=== PATIENT | female | born 1980 | race American Indian/Alaskan Native ===

== ENCOUNTER 2017-09-26 20:52 | Emergency (ER) | payer BC, MEDICAID ==
[2017-09-26 21:46] VITALS: BP 123/82
[2017-09-26 22:17] LABS: Basophils % (Auto) 0.6 % (0.0-1.8); Eosinophils # (Auto) 0.2 K/mm3 (0.0-0.4); Eosinophils % (Auto) 2.9 % (0.0-4.3); Hematocrit 36.7 % (30.3-42.9); Hemoglobin 11.8 gm/dl (10.1-14.3); Lymphocytes # (Auto) 1.7 K/mm3 (1.2-5.4); Lymphocytes % (Auto) 27.7 % (13.4-35.0); Mean Corpuscular HGB Conc 32 % (30-34); Mean Corpuscular Hemoglobin 27 pg (28-32); Mean Corpuscular Volume 84 fl (79-97); Monocytes # (Auto) 0.4 K/mm3 (0.0-0.8); Monocytes % (Auto) 7.2 % (0.0-7.3); Platelet Count 210 K/mm3 (140-440); Red Blood Count 4.38 M/mm3 (3.65-5.03); Red Cell Distribution Width 13.6 % (13.2-15.2)
[2017-09-26 22:20] LABS: Bilirubin,Urine NEG (Negative); Blood,Urine MOD (Negative); Color,Urine Straw (Yellow); Protein,Urine <15 mg/dL mg/dL (Negative); RBC,Urine < 1.0 /HPF (0.0-6.0); Urobilinogen,Urine < 2.0 mg/dL (<2.0)
--- NOTE | 2017-09-27 00:55 | Emergency Department Report ---
ED Female HPI - General Chief complaint: Vaginal Bleeding Stated complaint: VAG BLEED/ Time Seen by Provider: 09/27/17 00:34 Source: patient Mode of arrival: Ambulatory Limitations: No Limitations - History of Present Illness Initial comments: Mrs. Mims is a is is approximately 2 months . Unknown LMP. Possibly July. Has mild dull lower back pain and vaginal spotting. No care. Symptoms began today. Gradual mild symptoms. No vomiting. MD Complaint: vaginal bleeding -: Gradual, days(s) (1) Severity: mild Quality: cramping Are you Now?: Yes - Related Data Home Medications Medication Instructions Recorded Confirmed Last Taken Vits96/Iron Fum/Folic 1 each PO QDAY 01/14/14 08/07/14 01/14/14 09:00 [ Tablet] Previous Rx's Medication Instructions Recorded Last Taken Type Lisinopril [Zestril TAB] 10 mg PO QDAY #30 tablet 07/03/13 01/14/14 09:00 Rx Ibuprofen [Motrin 800 MG tab] 800 mg PO TID PRN #30 tablet 08/03/14 08/06/14 Rx oxyCODONE /ACETAMINOPHEN [Percocet 1 - 2 tab PO Q4HR PRN #30 tablet 08/03/14 Rx 5/325 mg] Labetalol [Normodyne TAB] 200 mg PO BID #60 tablet 08/07/14 Unknown Rx Allergies Allergy/AdvReac Type Severity Reaction Status Date / Time No Known Allergies Allergy Verified 01/14/14 22:53 ED Review of Systems ROS: Stated complaint: VAG BLEED/ Other details as noted in HPI ED Past Medical Hx - Past Medical History Previous Medical History?: Yes Hx Hypertension: Yes Hx Congestive Heart Failure: No Hx Diabetes: No Hx Deep Vein Thrombosis: No Hx GERD: Yes Hx Renal Disease: No Hx Sickle Cell Disease: No Hx Headaches / Migraines: No Hx Seizures: No Hx Asthma: No Hx COPD: No Hx HIV: No Additional medical history: preeclampsia w 2nd preg - Surgical History Past Surgical History?: Yes Additional Surgical History: csection x2 - Social History Smoking Status: Never Smoker Substance Use Type: None - Medications Home Medications: Home Medications Medication Instructions Recorded Confirmed Last Taken Type Lisinopril [Zestril TAB] 10 mg PO QDAY #30 tablet 07/03/13 08/07/14 01/14/14 09: 00 Rx Vits96/Iron Fum/Folic 1 each PO QDAY 01/14/14 08/07/14 01/14/14 09:00 History [ Tablet] Ibuprofen [Motrin 800 MG tab] 800 mg PO TID PRN #30 tablet 08/03/14 08/07/14 Rx oxyCODONE /ACETAMINOPHEN [Percocet 1 - 2 tab PO Q4HR PRN #30 tablet 08/03/1408/06/14 Rx 5/325 mg] Labetalol [Normodyne TAB] 200 mg PO BID #60 tablet 08/07/14 Unknown Rx ED Physical Exam - General Limitations: No Limitations General appearance: alert, in no apparent distress - Head Head exam: Present: atraumatic, normocephalic - Eye Eye exam: Present: normal appearance - ENT ENT exam: Present: mucous membranes moist - Neck Neck exam: Present: normal inspection. Absent: tenderness, meningismus - Respiratory Respiratory exam: Present: normal lung sounds bilaterally. Absent: respiratory distress, wheezes, rales, rhonchi - Cardiovascular Cardiovascular Exam: Present: regular rate, normal rhythm. Absent: systolic murmur, diastolic murmur, rubs, gallop - GI/Abdominal GI/Abdominal exam: Present: soft, normal bowel sounds. Absent: distended, tenderness, guarding, rebound - Extremities Exam Extremities exam: Present: normal inspection - Back Exam Back exam: Present: normal inspection - Neurological Exam Neurological exam: Present: alert, oriented X3 - Psychiatric Psychiatric exam: Present: normal affect, normal mood - Skin Skin exam: Present: warm, dry, intact, normal color. Absent: rash ED Course Vital Signs 09/26/17 09/26/17 21:44 21:48 Temperature 98.4 F 98.7 F Pulse Rate 76 76 Respiratory 16 Rate Blood Pressure 123/82 Blood Pressure 123/82 [Right] O2 Sat by Pulse 100 Oximetry ED Medical Decision Making - Lab Data Result diagrams: 09/26/17 21:54 Laboratory Results - last 24 hr 09/26/17 09/26/17 09/26/17 21:54 21:54 21:54 WBC 6.1 RBC 4.38 Hgb 11.8 Hct 36.7 MCV 84 MCH 27 L MCHC 32 RDW 13.6 Plt Count 210 Lymph % (Auto) 27.7 Frio % (Auto) 7.2 Eos % (Auto) 2.9 Baso % (Auto) 0.6 Lymph # 1.7 Frio # 0.4 Eos # 0.2 Baso # 0.0 Seg Neutrophils % 61.6 Seg Neutrophils # 3.8 HCG, Quant 2415 H Urine Color Urine Turbidity Urine pH Ur Specific [place] Urine Protein Urine Glucose (UA) Urine Ketones Urine Blood Urine Nitrite Urine Bilirubin Urine Urobilinogen Ur Leukocyte Esterase Urine WBC (Auto) Urine RBC (Auto) U Epithel Cells (Auto) Blood Type B POSITIVE Antibody Screen Negative 09/26/17 Unknown WBC RBC Hgb Hct MCV MCH MCHC RDW Plt Count Lymph % (Auto) Frio % (Auto) Eos % (Auto) Baso % (Auto) Lymph # Frio # Eos # Baso # Seg Neutrophils % Seg Neutrophils # HCG, Quant Urine Color Straw Urine Turbidity Clear Urine pH 5.0 Ur Specific [place] 1.006 Urine Protein <15 mg/dl Urine Glucose (UA) Neg Urine Ketones Neg Urine Blood Mod Urine Nitrite Neg Urine Bilirubin Neg Urine Urobilinogen < 2.0 Ur Leukocyte Esterase Neg Urine WBC (Auto) 1.0 Urine RBC (Auto) < 1.0 U Epithel Cells (Auto) 2.0 Blood Type Antibody Screen - Medical Decision Making Ms. Mims presents with threatened miscarriage. DDx: missed , ectopic , or early Patient recommended to return in 2 days for repeat assessment. Critical care attestation.: If time is entered above; I have spent that time in minutes in the direct care of this critically ill patient, excluding procedure time. ED Disposition Clinical Impression: Threatened miscarriage Disposition: DC-01 TO HOME OR SELFCARE Is pt being admited?: No Does the pt Need Aspirin: No Condition: Stable Instructions: Threatened Miscarriage (ED) Additional Instructions: Please return to ER in 2-3 days on Saturday or Saturday for repeat US and hormone level. Forms: Work/School Release Form(ED)
--- NOTE | 2017-09-27 01:41 | Ultrasound Report ---
FINAL REPORT EXAM: US OB < = 14 WEEKS FETUS HISTORY: +hcg, vag bleeding TECHNIQUE: Transabdominal imaging was obtained of the pelvis. The patient refused transvaginal imaging. Doppler interrogation of the uterus and adnexa was obtained. FINDINGS: The uterus is anteverted measuring 11.8 cm x 5.6 cm x 8.6 cm. Within the uterus is a sac-like structure with a mean sac diameter 9.3 mm. This corresponds to a 5 week 5 day . The gestational sac is empty. There is no evidence of subchorionic hemorrhage. The ovaries are not adequately seen for evaluation. Free fluid is not seen IMPRESSION: Intrauterine gestational sac corresponding to 5 week 5 day . An embryo is not seen at this time. Repeat imaging is recommended in 1 week to confirm viability or demise.
== END 2017-09-27 02:16 | disposition home or self-care (01) ==
LOC: ED 20:52
DX: O20.0 Threatened abortion (principal); Z3A.14 14 weeks gestation of pregnancy; K21.9 Gastro-esophageal reflux disease without esophagitis; I10 Essential (primary) hypertension
CPT/HCPCS: 36415; 76801; 81001; 84702; 85025; 86850; 86900; 86901

== ENCOUNTER 2018-09-14 03:06 | Emergency (ER) | payer BC ==
[2018-09-14 03:17] VITALS: BP 149/94
[2018-09-14] MEDS ORDERED: TYLENOL ONE ×2 (03:49→05:50)
[2018-09-14] MEDS ORDERED: TYLENOL PO ONE (05:47)
--- NOTE | 2018-09-14 07:39 | Emergency Department Report ---
ED ENT HPI - General Chief complaint: Dental/Oral Stated complaint: BAD TOOTHACHE Time Seen by Provider: 09/14/18 07:06 Source: patient Mode of arrival: Ambulatory Limitations: No Limitations - History of Present Illness Initial comments: Patient is a 38-year-old female who presents to the ER with left sided upper and lower dental pain. Patient is 22 weeks . She is having no related symptoms. No abdominal pain no vaginal bleeding or discharge. Patient states that the pain came on gradually and she's been taking Tylenol but the Tylenol is not helping. She notes that she is limited with regard to pain medicine given her . Patient does have a dentist. MD complaint: tooth pain -: Gradual Severity: mild Quality: aching Consistency: constant Associated Symptoms: toothache - Related Data Previous Rx's Medication Instructions Recorded Last Taken Type Amoxicillin 500 mg PO BID #20 capsule 09/14/18 Unknown Rx Allergies Allergy/AdvReac Type Severity Reaction Status Date / Time No Known Allergies Allergy Verified 01/14/14 22:53 ED Dental HPI - General Chief complaint: Dental/Oral Stated complaint: BAD TOOTHACHE Time Seen by Provider: 09/14/18 07:06 Source: patient Mode of arrival: Ambulatory Limitations: No Limitations - Related Data Previous Rx's Medication Instructions Recorded Last Taken Type Amoxicillin 500 mg PO BID #20 capsule 09/14/18 Unknown Rx Allergies Allergy/AdvReac Type Severity Reaction Status Date / Time No Known Allergies Allergy Verified 01/14/14 22:53 ED Review of Systems ROS: Stated complaint: BAD TOOTHACHE Other details as noted in HPI Comment: All other systems reviewed and negative Constitutional: denies: chills Eyes: denies: eye pain, vision change ENT: dental pain Respiratory: denies: cough Cardiovascular: denies: chest pain Endocrine: denies: flushing Gastrointestinal: denies: as per HPI, abdominal pain Genitourinary: as per HPI Musculoskeletal: denies: back pain Skin: denies: lesions Neurological: denies: headache Psychiatric: denies: anxiety Hematological/Lymphatic: denies: easy bleeding ED Past Medical Hx - Past Medical History Previous Medical History?: Yes Hx Hypertension: No Hx Congestive Heart Failure: No Hx Diabetes: No Hx Deep Vein Thrombosis: No Hx GERD: Yes Hx Renal Disease: No Hx Sickle Cell Disease: No Hx Headaches / Migraines: No Hx Seizures: No Hx Asthma: No Hx COPD: No Hx HIV: No Additional medical history: preeclampsia w 2nd preg - Surgical History Past Surgical History?: Yes Additional Surgical History: csection x2 - Social History Smoking Status: Never Smoker Substance Use Type: None - Medications Home Medications: Home Medications Medication Instructions Recorded Confirmed Last Taken Type Amoxicillin 500 mg PO BID #20 capsule 09/14/18 Unknown Rx ED Physical Exam - General Limitations: No Limitations General appearance: alert - Head Head exam: Present: atraumatic - Eye Eye exam: Present: normal appearance Pupils: Present: normal accommodation - ENT ENT exam: Present: normal exam, mucous membranes moist - Expanded ENT Exam Expanded Ear exam: Present: normal external inspection Mouth exam: Present: normal external inspection. Absent: drooling, trismus, muffled voice, tongue normal, tongue elevation, laceration Teeth exam: Present: other (no abscess of gums, no ludwigs, no pharyngeal abscess) 1 - Other (dental pain) Throat exam: Positive: normal inspection. Negative: tonsillar erythema, tonsillomegaly, tonsillar exudate, R peritonsillar mass, L peritonsillar mass - Neck Neck exam: Present: full ROM. Absent: tenderness, meningismus - Respiratory Respiratory exam: Present: normal lung sounds bilaterally - Cardiovascular Cardiovascular Exam: Present: regular rate - GI/Abdominal GI/Abdominal exam: Present: other (gravid) - Extremities Exam Extremities exam: Present: normal inspection, full ROM - Back Exam Back exam: Present: normal inspection, full ROM - Neurological Exam Neurological exam: Present: alert, oriented X3, CN II-XII intact - Skin Skin exam: Present: warm, dry, intact ED Course Vital Signs 09/14/18 03:13 Temperature 97.9 F Pulse Rate 84 Respiratory 18 Rate Blood Pressure 149/94 O2 Sat by Pulse 100 Oximetry ED Medical Decision Making - Medical Decision Making simple dental pain in 22 w female no complaints dental pain only no abscess/ludwigs treat with amox and tylenol she will follow up with dentist educated on diet during Critical care attestation.: If time is entered above; I have spent that time in minutes in the direct care of this critically ill patient, excluding procedure time. ED Disposition Clinical Impression: Pain, dental, Disposition: DC- TO HOME OR SELFCARE Is pt being admited?: No Does the pt Need Aspirin: No Condition: Stable Additional Instructions: follow up with dentist as we discussed tylenol for pain drink milk or food with calcium/VitD daily Referrals: KHUSHI NOWAK MD [Primary Care Provider] - 3-5 Days Time of Disposition: 07:37
== END 2018-09-14 07:42 | disposition home or self-care (01) ==
LOC: ED 03:06
DX: O26.892 Other specified pregnancy related conditions, second trimester (principal); K08.89 Other specified disorders of teeth and supporting structures; K21.9 Gastro-esophageal reflux disease without esophagitis; Z3A.22 22 weeks gestation of pregnancy
CPT/HCPCS: 99282

== ENCOUNTER 2018-09-16 09:57 | Outpatient (CLI) | payer BC ==
[2018-09-16 10:27] VITALS: BP 121/71
[2018-09-16 11:01] LABS: Bacteria,Urine 1+ /HPF (Negative); Bilirubin,Urine NEG (Negative); Blood,Urine NEG (Negative); Color,Urine Yellow (Yellow); Mucus,Urine FEW /HPF; Protein,Urine <15 mg/dL mg/dL (Negative); Urobilinogen,Urine < 2.0 mg/dL (<2.0)
--- NOTE | 2018-09-16 13:32 | Ultrasound Report ---
ULTRASOUND OB LIMITED ULTRASOUND OB TRANSVAGINAL History: labor Technique: Transabdominal and transvaginal ultrasound with Doppler interrogation. Gestation: Single Position: Variable Amniotic Fluid: Within normal limits Placenta: Anterior Placental Grade: 0 Heart Rate: 149 BPM Cervical length: 4.4 cm (Normal > 3 cm)
== END 2018-09-16 14:19 | disposition home or self-care (01) ==
LOC: TRG 09:57
PROVIDERS: ATTEND Obstetrics & Gynecology
DX: O47.02 False labor before 37 completed weeks of gestation, second trimester (principal); O13.3 Gestational [pregnancy-induced] hypertension without significant proteinuria, third trimester; Z3A.23 23 weeks gestation of pregnancy
CPT/HCPCS: 76815; 76817; 81001; 87086

== ENCOUNTER 2019-01-07 05:23 | Inpatient (IN) | payer BC ==
--- NOTE | 2019-01-05 18:46 | History and Physical Report ---
History of Present Illness Date of examination: 01/01/19 History of present illness: Past History : 6 Term Births: 1 Premature Births: 2 Living Children: 2 Para: 2 Spont. Ab: 2 # 1 Delivery date: 09/06/1998 Weeks Gestation: 28 labor: yes Delivery type: Delivery location: [place] Inf[place] Sex: Male weight: 2lbs Comments: PTL, brain abnormaility?, demise # 2 Delivery date: 09/27/2012 Weeks Gestation: 36+5 Delivery type: Anesthesia type: epidural Delivery location: [facility] Infant Sex: female weight: 5.94 Comments: pre-eclampsia/eclampsia; HSV infection, prodromal # 3 Delivery date: 08/03/2014 Weeks Gestation: 39 Delivery type: Anesthesia type: epidural Delivery location: [facility] Infant Sex: female weight: 9.13 # 4 Delivery date: 06/2017 Delivery type: MISSED AB # 5 Delivery date: 09/2017 Delivery type: SAB Past Medical History: Reviewed history from 10/01/2008 and no changes required: Negative Past Medical History Past Surgical History: Reviewed history from 08/03/2014 and no changes required: Hysteroscopic polypectomy C-sectionx2 Past Medical History Surgery (Non-cuff maker): Hysteroscopic polypectomy C-sectionx2 BUN ICER History Uterine Surgery (not C/S): Polypectomy Operations: Hysteroscopic polypectomy C-sectionx2 Hospitalizations: negative Anesthesia Complications: negative Abnormal PAP: negative Uterine Anomaly: negative STEPHAN Exposure: negative Infertility: negative Infection History HIV Risk Eval: no Hep B Immunized: no TB exposure: no Personal hx. of genital herpes: yes Partner hx. of genital herpes: no Rash/viral illness since LMP: no Hx of STD: HSV Other: PID Family History Summary: Father (biol.) - Has Family History of Prostate Cancer - Entered On: 02/27/2018 General Comments - FH: No Family History of Breast Cancer No Family History of Colon Cancer No Family History of Ovarian Cancer Family History of Diabetes Family History of Hypertension- HTN Social Hx: Patient is single Smoking History: Patient has never smoked. Genetic History Congenital Heart Defect: Mom: no Dad: no Denice Disease: Mom: no Dad: no Thalassemia Mom: no Dad: no Neural Tube Defect Mom: no Dad: no Down's Syndrome Mom: no Dad: no Curt-Sachs Mom: no Dad: no Sickle Cell Disease/Trait Mom: no Dad: no Hemophilia Mom: no Dad: no Muscular Dystrophy Mom: no Dad: no Cystic Fibrosis Mom: no Dad: no [place] Chorea Mom: no Dad: no Mental Retardation Mom: no Dad: no Fragile X Mom: no Dad: no Other Genetic/Chromosomal Disorder Mom: no Dad: no Child w/other defect Mom: no Dad: no Enviromental Exposures Enviromental Exposures Reviewed Xray Exposure: no Medication, drug, or alcohol use since LMP: no Chemical/Other Exposure: no Exposure to Cat Liter: no Hx of Parvovirus (Fifth Disease): no Occupational Exposure to Children: none Active Medications (reviewed today): LILA LOW DOSE 81 MG ORAL TABLET DELAYED RELEASE (ASPIRIN) PLUS 27-1 MG ORAL TABLET ( VIT-FE FUMARATE-FA) 1 po Current Allergies (reviewed today): No known allergies Physical Exam General appearance: well nourished, healthy appearing, no distress Chest/Lungs: respiratory effort normal, lungs clear to auscultation Cardiovascular: normal rate and rhythm Abdomen/GI: soft, nontender Extremities: no discoloration or edema Problem # 1: Maternal care for low transverse scar from previous delivery ([id number]) Consent reviewed and signed . Laparotomy explained to patient. The risks and alternatives for this surgery were reviewed with the patient. She was informed of possible bleeding, infection, injury to bowel, bladder, ureters or other adjacent organs. The patient was instructed/informed the following: The normal length of hospital stay for this procedure. Nothing to eat or drink after midnight the evening prior to surgery. Pre-op instruction sheets given. Wound care instructions given. Infection precautions reviewed, patient to call for any signs or symptoms of infection. The usual discomforts associated with this procedure were detailed. . Patient was given ample opportunity to have all her questions answered before signing informed consent. Problem # 2: Sterilization (ICD-V25.2) ([id number]) Risks of regret emphasized. Permanent and irreversible condition explained to patient. Pt verbalized understanding. Consent reviewed and signed. The risks and alternatives to this surgery were reviewed with the patient. Infection precautions reviewed, pt to call for any signs or symptoms of infection. Patient given ample opportunity to have all her questions answered before signing informed consent. Patient informed of possible bleeding. 1%failure rate emphasized Problem # 3: Advanced Maternal Age (OZP42-M43.529) Problem # 4: Genital herpes (ICD-054.10) ([id number]-P76.00) ) Past History - Obstetrical History : 3 Medications and Allergies Allergies Allergy/AdvReac Type Severity Reaction Status Date / Time No Known Allergies Allergy Verified 01/14/14 22:53 Home Medications Medication Instructions Recorded Confirmed Last Taken Type Amoxicillin 500 mg PO BID #20 capsule 09/14/18 Unknown Rx Active Meds: Active Medications Carboprost Tromethamine (Hemabate) 250 mcg IM ONCE ONE Stop: 01/07/19 05:31 Citric Acid/Sodium Citrate (Bicitra) 30 ml PO ONCE ONE Stop: 01/07/19 07:01 Famotidine (Pepcid) 20 mg IV ONCE ONE Stop: 01/07/19 07:01 Cefazolin Sodium (Ancef/Sterile Water 2 Gm/20 Ml) 2 gm in 20 mls @ 80 mls/hr IV PREOP NR; Protocol Oxytocin/Sodium Chloride (Pitocin/Ns 20 Unit/1000ml Drip) 20 units in 1,000 mls @ 0 mls/hr IV TITR ELSY Lactated Ringer's (Lactated Ringers) 1,000 mls @ 2,250 mls/hr IV PREOP ELSY Stop: 01/08/19 05:57 Methylergonovine Maleate (Methergine) 0.2 mg IM ONCE PRN PRN Reason: bleeding Metoclopramide HCl (Reglan) 10 mg IV ONCE ONE Stop: 01/07/19 07:01 Misoprostol (Cytotec) 1,000 mcg OR ONCE PRN PRN Reason: bleeding Oxytocin (Pitocin) 10 unit IM ONCE PRN PRN Reason: bleeding Results All other labs normal. Assessment and Plan - Patient Problems (1) Maternal care due to low transverse uterine scar from previous delivery Status: Acute (2) Sterilization Status: Acute (3) Genital herpes Status: Chronic (4) Advanced maternal age (AMA) in Status: Chronic
[2019-01-07] MEDS ORDERED: METHERGINE IM PRN (05:30)
[2019-01-07] MEDS ORDERED: ANCEF/STERILE WATER 2 GM/20 ML 2 GM/20 ML SYRINGE IV NR (05:30)
[2019-01-07] MEDS ORDERED: HEMABATE IM ONE (05:30)
[2019-01-07] MEDS ORDERED: CYTOTEC PR PRN (05:30)
[2019-01-07] MEDS ORDERED: PITOCin/NS 20 UNIT/1000ML DRIP 20 UNITS/1,000 ML BAG IV SCH ×2 (05:30→11:56)
[2019-01-07] MEDS ORDERED: LACTATED RINGERS 2,000 ML ONE (05:45)
[2019-01-07] MEDS: LACTATED RINGERS 1,000 ML IV SCH ×2 (06:00→07:09)
[2019-01-07 06:08] LABS: Hematocrit 36.2 % (30.3-42.9); Mean Corpuscular HGB Conc 33 % (30-34); Mean Corpuscular Volume 89 fl (79-97); Platelet Count 120 K/mm3 (140-440); Red Blood Count 4.09 M/mm3 (3.65-5.03); Red Cell Distribution Width 13.3 % (13.2-15.2)
[2019-01-07] MEDS ORDERED: BICITRA PO SCH (07:00)
[2019-01-07] MEDS ORDERED: REGLAN IV SCH (07:00)
[2019-01-07] MEDS ORDERED: PEPCID IV SCH (07:00)
[2019-01-07] MEDS ORDERED: ANCEF/STERILE WATER 2 GM/20 ML 2 GM/20 ML SYRINGE IV ONE (07:03)
[2019-01-07] MEDS ORDERED: PITOCin/NS 20 UNIT/1000ML DRIP 40,000 MILLIUNITS/2,000 ML BAG IV ONE (07:04)
[2019-01-07] MEDS ORDERED: SUBLIMAZE ONE (07:10)
--- NOTE | 2019-01-07 07:28 | Anesthesia Consultation ---
Anesthesia Consult and Med Hx Date of service: 01/07/19 - Airway Anesthetic Teeth Evaluation: Good ROM Head & Neck: Adequate Mental/Hyoid Distance: Adequate Mallampati Class: Class II Intubation Access Assessment: Probably Good - Pulmonary Exam CTA: Yes - Cardiac Exam Cardiac Exam: RRR - Pre-Operative Health Status ASA Pre-Surgery Classification: ASA3 Proposed Anesthetic Plan: Epidural - Pulmonary Hx Smoking: No Hx Asthma: No Hx Respiratory Symptoms: No SOB: No COPD: No Home Oxygen Therapy: No Hx Pneumonia: No Hx Sleep Apnea: No - Cardiovascular System Hx Hypertension: Yes (PIH) Hx Coronary Artery Disease: No Hx Heart Attack/AMI: No Hx Angina: No Hx Percutaneous Transluminal Coronary Angioplasty (PTCA): No Hx Cardia Arrhythmia: No Hx Pacemaker: No Hx Internal Defibrillator: No Hx Valvular Heart Disease: No Hx Heart Murmur: No Hx Peripheral Vascular Disease: No - Central Nervous System Hx Neuromuscular Disorder: No Hx Seizures: No CVA: No Hx Back Pain: No Hx Psychiatric Problems: No - Gastrointestinal Hx Ulcer: No Hx Gastroesophageal Reflux Disease: Yes - Endocrine Hx Renal Disease: No Hx End Stage Renal Disease: No Hx Cirrhosis: No Hx Liver Disease: No Hx Insulin Dependent Diabetes: No Hx Non-Insulin Dependent Diabetes: No Hx Thyroid Disease: No Hx Hypothyroidism: No Hx Hyperthyroidism: No - Hematic Hx Anemia: No Hx Sickle Cell Disease: No - Other Systems Hx Alcohol Use: No Hx Cancer: No Hx Obesity: Yes (BMI 35)
--- NOTE | 2019-01-07 07:28 | Anesthesia Day of Surgery ---
Anesthesia Day of Surgery - Day of Surgery Patient Examined: Yes Patient H&P Reviewed: Yes Patient is NPO: Yes Beta Blockers: No Cardiac Clearance: No Pulmonary Clearance: No Michael's Test: N/A
[2019-01-07 07:45] LABS: Alanine Aminotransferase 14 units/L (7-56); Uric Acid 4.4 mg/dL (3.5-7.6)
[2019-01-07] MEDS ORDERED: WATER FOR IRRIG STERILE IR ONE (08:00)
[2019-01-07] MEDS ORDERED: NACL 0.9% IR ONE (08:00)
[2019-01-07] MEDS ORDERED: NEO SYNEPHRINE ONE (08:28)
[2019-01-07] MEDS ORDERED: TORADOL ONE (09:25)
--- NOTE | 2019-01-07 09:48 | Post Operative Note ---
Pre-op diagnosis: delivery sterilization Post-op diagnosis: same Procedure: LTCS, salpingectomy (B) Anesthesia: epidural Surgeon: KRISTEN CID Estimated blood loss: other (600mL) Pathology: list (tubes) Specimen disposition: to lab Condition: stable Disposition: PACU
[2019-01-07] MEDS ORDERED: PHENERGAN PR PRN (10:00)
[2019-01-07] MEDS ORDERED: PHENERGAN PO PRN (10:00)
[2019-01-07] MEDS ORDERED: DILAUDID IV PRN ×2 (10:00)
[2019-01-07] MEDS ORDERED: SODIUM CHLORIDE FLUSH SYRINGE 10 ML IV NR ×2 (10:00→11:56)
[2019-01-07] MEDS ORDERED: ZOFRAN IV PRN ×2 (10:00→11:56)
[2019-01-07] MEDS ORDERED: NARCAN 0.4 MG/1 ML IV PRN ×2 (10:00→11:56)
--- NOTE | 2019-01-07 10:00 | Post Anesthesia Evaluation ---
- Post Anesthesia Evaluation Patient Participated: Yes Airway Patent: Yes Stable Respiratory Function: Yes Nausea/Vomiting: No Temp > 96.8F: Yes Pain Manageable: Yes Adequeate Hydration: Yes Anesthesia Complications: No Block Receding Appropriately: Yes Patient on Ventilator: No
[2019-01-07] MEDS ORDERED: LACTATED RINGERS 1,000 ML ONE (10:01)
[2019-01-07] MEDS ORDERED: TYLENOL PR PRN (11:56)
[2019-01-07] MEDS ORDERED: TYLENOL PO PRN (11:56)
[2019-01-07] MEDS ORDERED: TORADOL IV PRN ×2 (11:56)
[2019-01-07] MEDS ORDERED: D5LR 1,000 ML IV SCH (11:56)
[2019-01-07] MEDS ORDERED: MORPHINE IV PRN ×2 (11:56)
[2019-01-07] MEDS ORDERED: TUCKS PAD TP PRN (11:56)
[2019-01-07] MEDS ORDERED: LANSINOH TP PRN (11:56)
--- NOTE | 2019-01-07 19:29 | Operative Report ---
Operative Report Operative Report: Date: 01/07/2019 Preoperative diagnosis: 1. Intrauterine at 39 weeks 2. Previous delivery 2 desires repeat delivery 3. Advanced maternal age 4. Desires sterilization by salpingectomy Postoperative diagnosis: 1. Intrauterine at 39 weeks 2. Previous delivery 2 desires repeat delivery 3. Advanced maternal age 4. Desires sterilization by salpingectomy Procedure: Low transverse delivery with bilateral salpingectomy for sterilization Surgeon: Aleisha Mendenhall MD Seafood Manager: Gem Dempsey STNA Anesthesia: Epidural Anesthesiologist: Dr. Medrano Estimated blood loss: 600 mL Urine out: 200 mL Findings: Live born male . Weight 8 pounds 13 oz. Apgars 8 at 1 minute and 9 at 5 minutes. Grossly normal uterus, tubes and ovaries Procedure: After risk, benefits, complications, consequences and alternatives for th procedure were discussed with patient and consents were reviewed and signed, she was taken to the OR where epidural anesthesia was placed. She was then placed in the left lateral tilt position, and prepped and draped in the usual sterile fashion. Timeout was performed, and an appropriate level of anesthesia was noted, a Pfannenstiel incision was made and extended to the fascia which was incised and extended in the lateral directions. The overlying fascia was sharply dissected away from the underlying rectus muscles in the superior and inferior directions. The midline was entered with blunt and sharp dissection. The vesicouterine fold was incised and with blunt dissection the bladder flap was created. A transverse incision was made in the lower uterine segment and extended in superiolateral direction with finger fractionation. Clear fluid was noted. The infant was delivered from cephalic position with the second attempt at vacuum extraction. Mouth and nose were bulb suctioned. Spontaneous cry and excellent tone were noted. Cord was doubly clamped and cut. The was given to /resuscitation team present. The placenta was manually extracted. The uterus was then exteriorized and cleared of any further products of conception or placental tissue. The incision was reapproximated using 0 Vicryl in a running interlocking stitch. Once confirmation was obtained from the patient proceed with sterilization, bilateral salpingectomy was performed using the 5 mm LigaSure [place] device. Once hemostasis is noted the same procedure was performed on the left tube. Tisseel was applied to the adnexa to ensure hemostasis. Each fallopian tube was sent to pathology in separate containers. Once hemostasis was noted, the uterus was allowed back into the pelvic cavity. The pelvis was irrigated with warm normal saline. Attention was turned to the adnexa where hemostasis was noted. Tisseel was applied to the uterine incision for further hemostasis. Interceed was then placed to prevent adhesions. Then attention was turned to the rectus muscles. Once hemostasis was noted, the fascia was approximated using 0 Vicryl and some running stitch. Once hemostasis was noted skin incision was reapproximated using 4-0 Vicryl on a Emery needle in a subcuticular manner. Counts were correct 3. Patient tolerated procedure well state recovery room in stable condition.
[2019-01-07] MEDS: ANCEF/NS 1 GM/50 ML 1 GM/50 ML BAG IV SCH (21:02)
[2019-01-07] MEDS: IBUPROFEN PO PRN (21:04)
[2019-01-07] MEDS: PERCOCET 5/325 PO PRN (21:05)
[2019-01-07 21:41] LABS: Hematocrit 31.4 % (30.3-42.9); Hemoglobin 10.7 gm/dl (10.1-14.3); Mean Corpuscular HGB Conc 34 % (30-34); Mean Corpuscular Volume 87 fl (79-97); Platelet Count 108 K/mm3 (140-440); Red Blood Count 3.59 M/mm3 (3.65-5.03)
[2019-01-08] MEDS: IBUPROFEN PO PRN ×3 (02:58→18:38)
[2019-01-08] MEDS: MYLICON PO PRN (02:58)
[2019-01-08] MEDS: PERCOCET 5/325 PO PRN ×4 (02:59→23:46)
[2019-01-08] MEDS: ANCEF/NS 1 GM/50 ML 1 GM/50 ML BAG IV SCH (05:00)
--- NOTE | 2019-01-08 06:47 | Progress Note ---
Assessment and Plan - Patient Problems (1) delivery delivered Onset Date: ~01/07/19 Current Visit: No Status: Acute Plan to address problem: VSS FF below umb Lochia small Dressing D&I to be removed today H&H 05/14 drop r/t blood loss from surgery Pt is asymptomatic. Doing well s/p c/s P: continue pathway Advance diet and activity Subjective - Subjective Date of service: 01/08/19 (pt in good spirits No c/o voiced) Principal diagnosis: Day # 1 s/p repeat c/s with tubal Patient reports: appetite normal, voiding normally, pain well controlled, ambulating normally : doing well Objective - Vital Signs Latest vital signs: Vital Signs Temp Pulse Resp BP BP Pulse Ox 01/08/19 02:59 18 01/08/19 02:58 18 01/07/19 23:05 99 F 81 18 129/78 01/07/19 21:05 18 01/07/19 20:50 98.5 F 89 18 142/89 98 01/07/19 16:00 98.2 F 81 18 116/73 01/07/19 10:55 69 18 110/68 98 01/07/19 10:45 76 16 104/64 98 01/07/19 10:30 83 18 103/64 98 01/07/19 10:15 70 16 111/71 98 01/07/19 10:00 71 17 100/60 98 01/07/19 09:45 68 16 88/52 98 01/07/19 09:42 97.6 F 66 18 96/44 98 Intake and Output 01/07/19 01/07/19 01/08/19 14:59 22:59 06:59 Intake Total 900 650 Output Total 600 1900 1300 Balance 300 -1250 -1300 Intake: IV 900 50 ANCEF/NS 1 GM/50 ML 1 gm 50 In 50 ml @ 100 mls/hr IV Q8H [facility] Rx#:[id number] Oral 240 Intake, Free Water 360 Output: Urine 600 1900 1300 Indwelling Catheter 1900 Uretheral ([place]) 200 Void 1300 Other: Total, Intake Amount 240 Total, Output Amount 1000 700 # Voids Void 1 Estimated Blood Loss 600 - Exam Breasts: Present: normal Cardiovascular: Present: Regular rate Lungs: Present: Normal air movement Abdomen: Present: normal appearance, soft, normal bowel sounds Uterus: Present: normal, fundal height below umbilicus Extremities: Present: normal Deep Tendon Reflex Grade: Normal +2 Incision: Present: normal, dry, intact, dressed (to be removed) - Labs Labs: Abnormal lab results 01/07/19 01/07/19 Range/Units 07:10 21:32 RBC 3.59 L (3.65-5.03) M/mm3 RDW 13.0 L (13.2-15.2) % Plt Count 108 L (140-440) K/mm3 Creatinine 0.4 L (0.7-1.2) mg/dL
[2019-01-08] MEDS ORDERED: BOOSTRIX IM ONE (09:42)
[2019-01-09] MEDS: PERCOCET 5/325 PO PRN (05:42)
[2019-01-09 07:30] VITALS: BP 139/86
--- NOTE | 2019-01-09 08:33 | Discharge Summary ---
Providers - Providers Date of Admission: 01/07/19 05:23 Date of discharge: 01/09/19 (desires d/c home today) Attending physician: KRISTEN CID 01/07/19 11:56 Consult to Corporate Treasurer [CONS] Routine Reason For Exam: Primary care physician: KHUSHI NOWAK Hospitalization Reason for admission: repeat c/s Condition: Good Pertinent studies: postop H&H 10.7/31.4 Procedures: repeat c/s with tubal Hospital course: uncomplciated c/s and postop course Disposition: DC-01 TO HOME OR SELFCARE - Discharge Diagnoses (1) delivery delivered Status: Acute Core Measure Documentation - Palliative Care Palliative Care/ Comfort Measures: Not Applicable - Core Measures Any of the following diagnoses?: none Exam - Constitutional Vitals: Temp Pulse Resp BP Pulse Ox 98.7 F 83 18 139/86 98 01/09/19 07:17 01/09/19 07:17 01/09/19 07:17 01/09/19 07:17 01/09/19 00:16 General appearance: Present: no acute distress, well-nourished - EENT Eyes: Present: PERRL ENT: hearing intact, clear oral mucosa - Neck Neck: Present: supple, normal ROM - Respiratory Respiratory effort: normal Respiratory: bilateral: CTA - Cardiovascular Heart Sounds: Present: S1 & S2. Absent: rub, click - Extremities Extremities: pulses symmetrical, No edema Peripheral Pulses: within normal limits - Abdominal General gastrointestinal: Present: soft, non-tender, non-distended, normal bowel sounds Female genitourinary: Present: normal - Integumentary Integumentary: Present: clear, warm, dry - Musculoskeletal Musculoskeletal: gait normal, strength equal bilaterally - Psychiatric Psychiatric: appropriate mood/affect, intact judgment & insight - Neurologic Neurologic: CNII-XII intact, moves all extremities - Additional findings Additional findings: incision D&I, lochia scant, fundus firm, , b/p's 130/80's - no CHAPPELL, epigastric pain or visual changes Plan Activity: advance as tolerated Diet: regular Wound: open to air, keep clean and dry Follow up with: KRISTEN CID MD [Staff Physician] - 7 Days (Congratulations!!! please call [phone] to schedule your son's circumcision and your incision check in 1 week. Bring EMLA cream to your son's visit and await instructions. Call for any questions or concerns. ) Prescriptions: Docusate Sodium [Colace] 100 mg PO BID PRN #30 capsule PRN Reason: Constipation Lidocain2.5%/Prilocai2.5% [Emla] 5 gm TP ONCE #1 tube Ferrous Sulfate [Feosol 325 MG tab] 325 mg PO BID #90 tablet Ibuprofen [Motrin 800 MG tab] 800 mg PO TID PRN #30 tablet PRN Reason: Pain oxyCODONE /ACETAMINOPHEN [Percocet 5/325 mg] 1 - 2 tab PO Q4HR PRN #20 tablet PRN Reason: Pain
[2019-01-09] MEDS: IBUPROFEN PO PRN (09:52)
[2019-01-09] MEDS: MYLICON PO PRN (13:20)
== END 2019-01-09 14:53 | disposition home or self-care (01) | DRG 784 ==
LOC: UNDOADMIN 05:23 → 3A 05:23 → APU 05:41 → OB 11:07
PROVIDERS: ADMIT Obstetrics & Gynecology; ATTEND Obstetrics & Gynecology
PROC: 10D00Z1 Extraction of Products of Conception, Low, Open Approach (ICD-10-PCS; principal; 2019-01-07)
PROC: 0UT70ZZ Resection of Bilateral Fallopian Tubes, Open Approach (ICD-10-PCS; 2019-01-07)
PROC: 3E0234Z Introduction of Serum, Toxoid and Vaccine into Muscle, Percutaneous Approach (ICD-10-PCS; 2019-01-08)
DX: O34.211 Maternal care for low transverse scar from previous cesarean delivery (principal); O98.32 Other infections with a predominantly sexual mode of transmission complicating childbirth; A60.00 Herpesviral infection of urogenital system, unspecified; O16.4 Unspecified maternal hypertension, complicating childbirth; O99.62 Diseases of the digestive system complicating childbirth; O99.214 Obesity complicating childbirth; E66.9 Obesity, unspecified; K21.9 Gastro-esophageal reflux disease without esophagitis; Z3A.39 39 weeks gestation of pregnancy; Z23 Encounter for immunization; Z37.0 Single live birth
CPT/HCPCS: 36415; 82565; 83615; 84450; 84460; 84550; 85027; 86592; 86762; 86850; 86900; 86901; 88302; 90471; 90715; G0378; C1765; J0690; J1170; J1885; J2370; J2590; J2765; J3010; J7120; J7121

== ENCOUNTER 2019-01-14 15:28 | Inpatient (IN) | payer BC ==
--- NOTE | 2019-01-14 15:51 | Event Note ---
ED Screening Note Date of service: 01/14/19 Time: 15:49 ED Screening Note: 39 y/o female 1 week referred to ER from her doctor for eclampsia. This initial assessment/diagnostic orders/clinical plan/treatment(s) is/are subject to change based on patients health status, clinical progression and re- assessment by fellow clinical providers in the ED. Further treatment and workup at subsequent clinical providers discretion. Patient/guardian urged not to elope from the ED as their condition may be serious if not clinically assessed and managed. Initial orders include:
[2019-01-14 16:27] LABS: Basophils % (Auto) 0.7 % (0.0-1.8); Eosinophils # (Auto) 0.2 K/mm3 (0.0-0.4); Eosinophils % (Auto) 3.9 % (0.0-4.3); Hemoglobin 12.7 gm/dl (10.1-14.3); Lymphocytes # (Auto) 1.3 K/mm3 (1.2-5.4); Lymphocytes % (Auto) 30.9 % (13.4-35.0); Mean Corpuscular HGB Conc 33 % (30-34); Mean Corpuscular Volume 89 fl (79-97); Monocytes # (Auto) 0.4 K/mm3 (0.0-0.8); Monocytes % (Auto) 8.6 % (0.0-7.3); Platelet Count 278 K/mm3 (140-440); Red Blood Count 4.38 M/mm3 (3.65-5.03); Red Cell Distribution Width 13.2 % (13.2-15.2)
--- NOTE | 2019-01-14 16:35 | Emergency Department Report ---
ED General Adult HPI - General Chief complaint: High BP Stated complaint: PRE ECLAMPSIA Time Seen by Provider: 01/14/19 15:58 Source: patient Mode of arrival: Ambulatory Limitations: No Limitations - History of Present Illness Initial comments: 39-year-old female with a past medical history of previous preeclampsia presents to the hospital complains of elevated blood pressure noticed today. Patient had a delivery on 01/07/2019. She reports that she did not have any preeclampsia or elevated blood pressure during this . This is her third and she reports that with her first she had preeclampsia at the end of her and after her second she had preeclampsia. Patient went to her PMD office today and states her initial systolic blood pressure was 132. She when went to her [employer] follow-up appointment with Dr. Mendenhall who noticed a blood pressure was elevated and sent her to the ER to rule out preeclampsia. She had a mild frontal headache earlier that has since resolved. She denies abdominal pain, chest pain, blurrd vision, or leg edema. Severity scale (0 -10): 4 - Related Data Home Medications Medication Instructions Recorded Confirmed Last Taken Vit-Fe Fumar-FA [ 1 tab PO DAILY 01/07/19 01/07/19 01/06/19 Vitamin] Previous Rx's Medication Instructions Recorded Last Taken Type Docusate Sodium [Colace] 100 mg PO BID PRN #30 capsule 01/07/19 Unknown Rx Ferrous Sulfate [Feosol 325 MG tab] 325 mg PO BID #90 tablet 01/07/19 Unknown Rx Ibuprofen [Motrin 800 MG tab] 800 mg PO TID PRN #30 tablet 01/07/19 Unknown Rx Lidocain2.5%/Prilocai2.5% [Emla] 5 gm TP ONCE #1 tube 01/07/19 Unknown Rx oxyCODONE /ACETAMINOPHEN [Percocet 1 - 2 tab PO Q4HR PRN #20 tablet 01/07/19 Unknown Rx 5/325 mg] Allergies Allergy/AdvReac Type Severity Reaction Status Date / Time No Known Allergies Allergy Verified 01/14/19 15:43 ED Review of Systems ROS: Stated complaint: PRE ECLAMPSIA Other details as noted in HPI Comment: All other systems reviewed and negative ED Past Medical Hx - Past Medical History Previous Medical History?: Yes Hx Hypertension: Yes (PIH) Hx Heart Attack/AMI: No Hx Congestive Heart Failure: No Hx Diabetes: No Hx Deep Vein Thrombosis: No Hx GERD: Yes Hx Liver Disease: No Hx Renal Disease: No Hx Sickle Cell Disease: No Hx Headaches / Migraines: No Hx Seizures: No Hx Asthma: No Hx COPD: No Hx HIV: No Additional medical history: preeclampsia w 2nd preg - Surgical History Past Surgical History?: Yes Hx Pacemaker: No Hx Internal Defibrillator: No Additional Surgical History: csection x3 - Social History Smoking Status: Never Smoker Substance Use Type: None - Medications Home Medications: Home Medications Medication Instructions Recorded Confirmed Last Taken Type Docusate Sodium [Colace] 100 mg PO BID PRN #30 capsule 01/07/19 Unknown Rx Ferrous Sulfate [Feosol 325 MG tab] 325 mg PO BID #90 tablet 01/07/19 Unknown Rx Ibuprofen [Motrin 800 MG tab] 800 mg PO TID PRN #30 tablet 01/07/19 Unknown Rx Lidocain2.5%/Prilocai2.5% [Emla] 5 gm TP ONCE #1 tube 01/07/19 Unknown Rx Vit-Fe Fumar-FA [ 1 tab PO DAILY 01/07/19 01/07/19 01/06/19 History Vitamin] oxyCODONE /ACETAMINOPHEN [Percocet 1 - 2 tab PO Q4HR PRN #20 tablet 01/07/19 Unknown Rx 5/325 mg] ED Physical Exam - General Limitations: No Limitations - Other Other exam information: General: No limitations, patient is alert in no acute distress Head exam: Atraumatic, normocephalic Eyes exam: Normal appearance, pupils equal reactive to light, extraocular movements intact ENT: Moist mucous membrane, normal oropharynx Neck exam: Normal inspection, full range of motion, no meningismus nontender Respiratory exam: Clear to auscultation bilateral, no wheezes, rales, crackles Cardiovascular: Normal rate and rhythm, normal heart sounds Abdomen: Soft, nondistended, and nontender, with normal bowel sounds, no rebound, or guarding Extremity: Full range of motion normal inspection no deformity, no leg edema Back: Normal Inspection, full range of motion, no tenderness Neurologic: Alert, oriented x3, cranial nerves intact, no motor or sensory deficit Psychiatric: normal affect, normal mood Skin: Warm, dry, intact ED Course Vital Signs 01/14/19 01/14/19 01/14/19 15:40 16:50 17:00 Temperature 98.2 F Pulse Rate 83 75 Respiratory 16 14 Rate Blood Pressure 155/88 137/94 Blood Pressure 155/101 [Right] O2 Sat by Pulse 99 97 95 Oximetry 01/14/19 17:31 Temperature Pulse Rate 76 Respiratory 18 Rate Blood Pressure Blood Pressure 147/97 [Right] O2 Sat by Pulse 97 Oximetry - Consultations Consultation #1: 01/14/19 18:22 case d/w Caitlyn with ob (Dr mendenhall group) will admit, 4g Mag ordered in ed ED Medical Decision Making - Lab Data Result diagrams: 01/14/19 15:54 01/14/19 15:54 Lab Results 01/14/19 01/14/19 01/14/19 Range/Units 15:54 15:54 15:54 WBC 4.3 L (4.5-11.0) K/mm3 RBC 4.38 (3.65-5.03) M/mm3 Hgb 12.7 (10.1-14.3) gm/dl Hct 39.0 (30.3-42.9) % MCV 89 (79-97) fl MCH 29 (28-32) pg MCHC 33 (30-34) % RDW 13.2 (13.2-15.2) % Plt Count 278 (140-440) K/mm3 Lymph % (Auto) 30.9 (13.4-35.0) % [place] % (Auto) 8.6 H (0.0-7.3) % Eos % (Auto) 3.9 (0.0-4.3) % Baso % (Auto) 0.7 (0.0-1.8) % Lymph # 1.3 (1.2-5.4) K/mm3 [place] # 0.4 (0.0-0.8) K/mm3 Eos # 0.2 (0.0-0.4) K/mm3 Baso # 0.0 (0.0-0.1) K/mm3 Seg Neutrophils % 55.9 (40.0-70.0) % Seg Neutrophils # 2.4 (1.8-7.7) K/mm3 Sodium 138 (137-145) mmol/L Potassium 4.0 (3.6-5.0) mmol/L Chloride 100.8 (98-107) mmol/L Carbon Dioxide 23 (22-30) mmol/L Anion Gap 18 mmol/L BUN 7 (7-17) mg/dL Creatinine 0.4 L (0.7-1.2) mg/dL Estimated GFR > 60 ml/min BUN/Creatinine Ratio 18 % Glucose 87 (65-100) mg/dL Uric Acid 5.7 (3.5-7.6) mg/dL Calcium 9.5 (8.4-10.2) mg/dL Total Bilirubin 0.40 (0.1-1.2) mg/dL AST 31 (5-40) units/L ALT 38 (7-56) units/L Alkaline Phosphatase 114 (35-129) units/L Lactate Dehydrogenase 264 H (91-180) units/L Total Protein 7.4 (6.3-8.2) g/dL Albumin 4.2 (3.9-5) g/dL Albumin/Globulin Ratio 1.3 % Urine Color (Yellow) Urine Turbidity (Clear) Urine pH (5.0-7.0) Ur Specific [place] (1.003-1.030) Urine Protein (Negative) mg/dL Urine Glucose (UA) (Negative) mg/dL Urine Ketones (Negative) mg/dL Urine Blood (Negative) Urine Nitrite (Negative) Urine Bilirubin (Negative) Urine Urobilinogen (<2.0) mg/dL Ur Leukocyte Esterase (Negative) Urine WBC (Auto) (0.0-6.0) /HPF Urine RBC (Auto) (0.0-6.0) /HPF U Epithel Cells (Auto) (0-13.0) /HPF Urine Mucus /HPF 01/14/19 Range/Units 16:36 WBC (4.5-11.0) K/mm3 RBC (3.65-5.03) M/mm3 Hgb (10.1-14.3) gm/dl Hct (30.3-42.9) % MCV (79-97) fl MCH (28-32) pg MCHC (30-34) % RDW (13.2-15.2) % Plt Count (140-440) K/mm3 Lymph % (Auto) (13.4-35.0) % [place] % (Auto) (0.0-7.3) % Eos % (Auto) (0.0-4.3) % Baso % (Auto) (0.0-1.8) % Lymph # (1.2-5.4) K/mm3 [place] # (0.0-0.8) K/mm3 Eos # (0.0-0.4) K/mm3 Baso # (0.0-0.1) K/mm3 Seg Neutrophils % (40.0-70.0) % Seg Neutrophils # (1.8-7.7) K/mm3 Sodium (137-145) mmol/L Potassium (3.6-5.0) mmol/L Chloride (98-107) mmol/L Carbon Dioxide (22-30) mmol/L Anion Gap mmol/L BUN (7-17) mg/dL Creatinine (0.7-1.2) mg/dL Estimated GFR ml/min BUN/Creatinine Ratio % Glucose (65-100) mg/dL Uric Acid (3.5-7.6) mg/dL Calcium (8.4-10.2) mg/dL Total Bilirubin (0.1-1.2) mg/dL AST (5-40) units/L ALT (7-56) units/L Alkaline Phosphatase (35-129) units/L Lactate Dehydrogenase (91-180) units/L Total Protein (6.3-8.2) g/dL Albumin (3.9-5) g/dL Albumin/Globulin Ratio % Urine Color Yellow (Yellow) Urine Turbidity Clear (Clear) Urine pH 7.0 (5.0-7.0) Ur Specific [place] 1.012 (1.003-1.030) Urine Protein 30 mg/dl (Negative) mg/dL Urine Glucose (UA) Neg (Negative) mg/dL Urine Ketones Neg (Negative) mg/dL Urine Blood Sm (Negative) Urine Nitrite Neg (Negative) Urine Bilirubin Neg (Negative) Urine Urobilinogen < 2.0 (<2.0) mg/dL Ur Leukocyte Esterase Neg (Negative) Urine WBC (Auto) 1.0 (0.0-6.0) /HPF Urine RBC (Auto) 4.0 (0.0-6.0) /HPF U Epithel Cells (Auto) 1.0 (0-13.0) /HPF Urine Mucus Few /HPF - EKG Data -: EKG Interpreted by Hi EKG shows normal: sinus rhythm, axis (qrs -3), QRS complexes (qrd 97), ST-T waves (no stemi) - Medical Decision Making Patient be admitted to the hospital for preeclampsia. Magnesium 4 g bolus ordered. Patient to be admitted by [employer] service - Differential Diagnosis -induced hypertension, preeclampsia Critical Care Time: No Critical care attestation.: If time is entered above; I have spent that time in minutes in the direct care of this critically ill patient, excluding procedure time. ED Disposition Clinical Impression: Pre-eclampsia, Disposition: - OP ADMIT IP TO THIS HOSP Is pt being admited?: Yes Condition: Stable Time of Disposition: 18:27 ([facility] [employer] Dr. Mendenhall)
[2019-01-14 16:47] LABS: Alanine Aminotransferase 38 units/L (7-56); Albumin 4.2 g/dL (3.9-5); BUN/Creatinine Ratio 18; Blood Urea Nitrogen 7 mg/dL (7-17); Calcium 9.5 mg/dL (8.4-10.2); Hemolysis Index 7
[2019-01-14 17:07] LABS: Uric Acid 5.7 mg/dL (3.5-7.6)
[2019-01-14 17:09] LABS: Bilirubin,Urine NEG (Negative); Blood,Urine SM (Negative); Color,Urine Yellow (Yellow); Mucus,Urine FEW /HPF; Urobilinogen,Urine < 2.0 mg/dL (<2.0)
[2019-01-14] MEDS ORDERED: MAGNESIUM SULFATE 4GM/100ML 4 GM/100 ML BAG IV ONE (18:20)
--- NOTE | 2019-01-14 18:56 | History and Physical Report ---
History of Present Illness Date of examination: 01/14/19 (pt sent to ED for eval of PP PreE decision to admit) History of present illness: Sent to ED from OB office for evaluation of elevated BP BP 156/110 in office. Pt had voiced having a CHAPPELL but it has resolved. Spoke with in ED Decision made for admission for MGSO4, BP monitoring. made aware. Repeat section with tubal ligation 01/05/19 Past History - Obstetrical History : 6 Medications and Allergies Allergies Allergy/AdvReac Type Severity Reaction Status Date / Time No Known Allergies Allergy Verified 01/14/19 15:43 Home Medications Medication Instructions Recorded Confirmed Last Taken Type Docusate Sodium [Colace] 100 mg PO BID PRN #30 capsule 01/07/19 Unknown Rx Lidocain2.5%/Prilocai2.5% [Emla] 5 gm TP ONCE #1 tube 01/07/19 Unknown Rx Vit-Fe Fumar-FA [ 1 tab PO DAILY 01/07/19 01/07/19 01/06/19 History Vitamin] RX: Ferrous Sulfate [Feosol 325 MG 325 mg PO BID #90 tablet 01/07/19 Unknown Rx tab] RX: Ibuprofen [Motrin 800 MG tab] 800 mg PO TID PRN #30 tablet 01/07/19 Unknown Rx RX: oxyCODONE /ACETAMINOPHEN 1 - 2 tab PO Q4HR PRN #20 tablet 01/07/19 Unknown Rx [Percocet 5/325 mg] Active Meds: Active Medications Lactated Ringer's (Lactated Ringers) 1,000 mls @ 125 mls/hr IV DIRECT ELSY Magnesium Sulfate (Magnesium Sulfate 40gm/1000ml) 40 gm in 1,000 mls @ 50 mls/hr IV DIRECT ELSY Labetalol HCl (Normodyne) 200 mg PO BID ELSY - Vital Signs Vital signs: Vital Signs Temp Pulse Resp BP Pulse Ox 98.2 F 83 16 155/101 99 01/14/19 15:40 01/14/19 15:40 01/14/19 15:40 01/14/19 15:40 01/14/19 15:40 Temp Pulse Resp BP Pulse Ox 98.2 F 76 18 147/97 97 01/14/19 15:40 01/14/19 17:31 01/14/19 17:31 01/14/19 17:31 01/14/19 17:31 - Physical Exam Breasts: Positive: normal Cardiovascular: Regular rate, Normal S1, Normal S2 Lungs: Positive: Normal air movement Abdomen: Positive: normal appearance, soft, normal bowel sounds. Negative: distention, tenderness Genitourinary (Female): Positive: normal perenium Vulva: both: normal Vagina: Positive: normal moisture. Negative: discharge Cervix: Negative: lesion, discharge Uterus: Positive: normal size, normal contour Adnexa: both: normal Anus/Rectum: Positive: normal perianal skin, heme negative. Negative: rectal mass, hemorrhoids Extremities: Positive: normal Deep Tendon Reflex Grade: Normal +2 Results Result Diagrams: 01/14/19 15:54 01/14/19 15:54 Abnormal lab results 01/14/19 01/14/19 01/14/19 Range/Units 15:54 15:54 15:54 WBC 4.3 L (4.5-11.0) K/mm3 [place] % (Auto) 8.6 H (0.0-7.3) % Creatinine 0.4 L (0.7-1.2) mg/dL Lactate Dehydrogenase 264 H (91-180) units/L All other labs normal. Assessment and Plan - Patient Problems (1) Pre-eclampsia, Onset Date: ~01/14/19 Current Visit: Yes Status: Acute Plan to address problem: Pt sent from ED to LDR 6 Received MGSO4 bolus in ED MGSO4 @ 2gm/hr Pt had been to PCP and given RX for antihypertensive but could not remember the name Started on Labetalol 200mg po BID Hypertensive pathway orders initiated. Pt denies CHAPPELL, blurred vision, chest pain.
[2019-01-14] MEDS ORDERED: MAGNESIUM SULFATE 40GM/1000ML 40 GM/1,000 ML BAG IV SCH (19:00)
[2019-01-14] MEDS: LACTATED RINGERS 1,000 ML IV SCH (19:50)
[2019-01-14] MEDS ORDERED: LACTATED RINGERS 1,000 ML ONE (19:51)
[2019-01-14] MEDS: NORMODYNE PO SCH (21:33)
[2019-01-15] MEDS: IBUPROFEN PO PRN ×2 (06:35→16:26)
--- NOTE | 2019-01-15 09:39 | Progress Note ---
Assessment and Plan - Patient Problems (1) Pre-eclampsia, Onset Date: ~01/14/19 Current Visit: Yes Status: Acute Plan to address problem: -decrease mag to 1gm /hr -d/c mag at 1800 -cont labetalol 200mg bid -xfer to mother baby after mg is d/c'd Subjective - Subjective Date of service: 01/15/19 Principal diagnosis: HD #1 for PP pre E Interval history: Pt states she had blurry vision at this time but no headache or SOB. BP is normal. Last Magnesium level was not elevated but will obtain repeat at this time. Pt has not other c/o. Will decreast to 1g/hr untl 1800 and then d/c and transfer to M/B. Plan of care d/w pt and questions were addressed and answered. Patient reports: appetite normal, pain well controlled Objective - Vital Signs Latest vital signs: Vital Signs Temp Pulse Resp BP BP BP Pulse Ox 01/15/19 09:30 64 122/75 01/15/19 09:16 70 97 01/15/19 08:46 65 134/83 01/15/19 08:16 73 99 01/15/19 07:30 66 111/76 01/15/19 07:16 82 99 01/15/19 06:30 63 121/71 01/15/19 06:16 74 98 01/15/19 05:36 61 88 01/15/19 05:30 63 105/62 87 01/15/19 05:16 62 95 01/15/19 04:44 69 91 01/15/19 04:30 97.5 F L 89 110/74 90 01/15/19 04:16 71 96 01/15/19 04:07 71 88 01/15/19 04:01 87 82 L 01/15/19 03:30 65 117/68 01/15/19 03:16 65 97 01/15/19 03:02 65 89 01/15/19 02:53 67 92 01/15/19 02:46 71 90 01/15/19 02:37 73 89 01/15/19 02:30 69 113/65 92 01/15/19 02:24 71 86 01/15/19 02:11 64 94 01/15/19 02:06 65 95 01/15/19 02:01 66 94 01/15/19 01:56 65 95 01/15/19 01:51 80 94 01/15/19 01:46 64 94 01/15/19 01:43 70 89 01/15/19 01:41 67 94 01/15/19 01:36 66 94 01/15/19 01:31 65 96 01/15/19 01:30 63 111/67 94 01/15/19 01:26 65 96 01/15/19 01:23 67 94 01/15/19 01:21 68 95 01/15/19 01:17 73 94 01/15/19 01:16 71 96 01/15/19 01:12 76 94 01/15/19 01:11 71 95 01/15/19 01:06 74 94 01/15/19 01:01 70 95 01/15/19 00:56 64 94 01/15/19 00:54 64 94 01/15/19 00:51 64 94 01/15/19 00:49 63 94 01/15/19 00:46 63 94 01/15/19 00:41 62 94 01/15/19 00:37 62 94 01/15/19 00:36 61 95 01/15/19 00:31 65 94 01/15/19 00:30 97.7 F 64 117/65 92 01/15/19 00:26 65 94 01/15/19 00:25 63 94 01/15/19 00:21 63 93 01/15/19 00:19 63 94 01/15/19 00:16 63 95 01/15/19 00:13 65 94 01/15/19 00:11 64 95 01/15/19 00:07 61 94 01/15/19 00:06 64 96 01/15/19 00:01 69 96 01/14/19 23:56 65 96 01/14/19 23:51 66 98 01/14/19 23:46 69 98 01/14/19 23:41 66 98 01/14/19 23:36 71 94 01/14/19 23:31 73 95 01/14/19 23:26 64 93 01/14/19 23:24 77 93 01/14/19 23:21 79 91 01/14/19 23:16 64 95 01/14/19 23:12 63 123/74 01/14/19 23:11 63 97 01/14/19 23:06 69 96 01/14/19 23:05 63 93 01/14/19 23:01 66 97 01/14/19 22:56 71 97 01/14/19 22:51 64 98 01/14/19 22:46 68 98 01/14/19 22:42 67 123/71 91 01/14/19 22:41 66 98 01/14/19 22:36 66 97 01/14/19 22:31 61 95 01/14/19 22:26 65 100 01/14/19 22:21 76 99 01/14/19 22:16 76 98 01/14/19 22:12 69 137/85 01/14/19 22:11 72 99 01/14/19 22:06 81 98 01/14/19 22:01 97 H 95 01/14/19 21:56 79 98 01/14/19 21:51 73 96 01/14/19 21:46 74 98 01/14/19 21:41 75 98 01/14/19 21:36 77 97 01/14/19 21:33 77 154/91 01/14/19 21:32 75 94 01/14/19 21:31 80 97 01/14/19 21:26 84 97 01/14/19 21:21 75 97 01/14/19 21:16 77 97 01/14/19 21:11 75 98 01/14/19 21:06 78 97 01/14/19 21:01 77 99 01/14/19 20:56 76 98 01/14/19 20:51 80 100 01/14/19 20:46 81 99 01/14/19 20:41 78 98 01/14/19 20:36 81 99 01/14/19 20:31 80 97 01/14/19 20:26 88 99 01/14/19 20:21 72 97 01/14/19 20:17 69 142/83 01/14/19 20:16 72 96 01/14/19 20:15 97.8 F 76 20 142/83 95 01/14/19 19:55 98.1 F 71 18 147/91 97 01/14/19 19:20 98.9 F 69 18 149/91 98 01/14/19 17:31 76 18 147/97 97 01/14/19 17:00 75 14 137/94 95 01/14/19 16:50 155/88 97 01/14/19 15:40 98.2 F 83 16 155/101 99 Intake and Output 01/14/19 01/15/19 01/15/19 22:59 06:59 14:59 Output Total 1200 Balance -1200 Output: Urine 1200 Indwelling Catheter 1200 Other: Total, Output Amount 1200 Weight 55.338 kg - Exam Cardiovascular: Present: Normal S1, Normal S2 Lungs: Present: Clear to auscultation, Normal air movement Abdomen: Present: normal appearance, soft. Absent: distention, tenderness, guarding Extremities: Present: normal, edema (1+ bilaterally). Absent: tenderness Deep Tendon Reflex Grade: Normal +2 Incision: Present: normal, dry, intact - Labs Labs: Abnormal lab results 01/14/19 01/14/19 01/14/19 Range/Units 15:54 15:54 15:54 WBC 4.3 L (4.5-11.0) K/mm3 [place] % (Auto) 8.6 H (0.0-7.3) % Creatinine 0.4 L (0.7-1.2) mg/dL Magnesium (1.7-2.3) mg/dL Lactate Dehydrogenase 264 H (91-180) units/L 01/14/19 01/15/19 Range/Units 23:45 05:42 WBC (4.5-11.0) K/mm3 [place] % (Auto) (0.0-7.3) % Creatinine (0.7-1.2) mg/dL Magnesium 4.00 H 5.30 H (1.7-2.3) mg/dL Lactate Dehydrogenase (91-180) units/L
[2019-01-15] MEDS: NORMODYNE PO SCH ×2 (10:19→21:58)
[2019-01-15] MEDS: LACTATED RINGERS 1,000 ML IV SCH (10:19)
[2019-01-15] MEDS ORDERED: MAGNESIUM SULFATE 40GM/1000ML 40 GM/1,000 ML BAG IV SCH (11:00)
--- NOTE | 2019-01-15 19:25 | Event Note ---
Date: 01/15/19 MgSO4 d/c will xfer to mother/baby at this time and con't to closely monitor.
--- NOTE | 2019-01-16 07:21 | Discharge Summary ---
Providers - Providers Date of Admission: 01/14/19 19:13 Date of discharge: 01/16/19 (pt agrees with d/c) Attending physician: RADHA LAO [facility] Reason for admission: PreE Condition: Good Hospital course: uncomplicated Pt sent from OB office to ED for PreE evaluation Decision to admit. Pt received 24hr MGSO4 per protocol. Responded well to therapy. Labetalol po 200mg BID added to regime. Disposition: DC-01 TO HOME OR SELFCARE - Discharge Diagnoses (1) Pre-eclampsia, Status: Acute Comment: RTO office one week for BP check. Pt also instructed to f/u with her PCP Core Measure Documentation - Palliative Care Palliative Care/ Comfort Measures: Not Applicable - Core Measures Any of the following diagnoses?: none - VTE Discharge Requirements Deep Vein Thrombosis/Pulmonary Embolism Present on Admission: No Has pt received <5 days of overlap therapy or INR<2.0: No Anticoagulant overlap therapy prescribed at discharge: No Contraindication No Overlap Therapy order at DC: Not Indicated - Acute MT Discharge Requirements Aspirin at discharge: No Reason for no aspirin on DC: Medical contraindication PHOEBE/ARB for LVSD if EF <40%: Not Applicable Reason for no PHOEBE/ARB: Medical contraindication Beta barrington at discharge: No Reason for no beta barrington on DC: Medical contraindication Statin for LDL = or >100 mg/dl on DC: Not Applicable Reason for no statin on DC: Medical contraindication - Heart Failure Discharge Requirements PHOEBE/ARB for LVSD if EF <40%: Not Applicable Reason for no PHOEBE/ARB: Medical contraindication Beta barrington at discharge: No Reason for no beta barrington on DC: Medical contraindication - Stroke Discharge Requirements Statin for LDL = or >70 mg/dl on DC: Not Applicable Reason for no statin on DC: Not Indicated Anticoag for atrial fib/atrial flutter: Not Applicable Reason for no anticoag for AF/F on DC: Not Indicated Antithrombotic for ischemic stroke: No Reason for no antithrombotic on DC: Not Indicated Exam - Constitutional Vitals: Temp Pulse Resp BP Pulse Ox 98.6 F 63 20 137/87 98 01/16/19 04:29 01/16/19 04:29 01/16/19 04:29 01/16/19 04:29 01/16/19 04:29 General appearance: Present: no acute distress, well-nourished - EENT Eyes: Present: PERRL ENT: hearing intact, clear oral mucosa - Neck Neck: Present: supple, normal ROM - Respiratory Respiratory effort: normal Respiratory: bilateral: CTA - Cardiovascular Rhythm: regular Heart Sounds: Present: S1 & S2. Absent: rub, click - Extremities Extremities: no ischemia, Full ROM Peripheral Pulses: within normal limits - Abdominal General gastrointestinal: Present: deferred Female genitourinary: Present: deferred - Rectal Rectal Exam: deferred - Integumentary Integumentary: Present: clear, warm, dry - Musculoskeletal Musculoskeletal: gait normal, strength equal bilaterally - Psychiatric Psychiatric: appropriate mood/affect, intact judgment & insight - Neurologic Neurologic: CNII-XII intact, moves all extremities Plan Activity: advance as tolerated Weight Bearing Status: Weight Bear as Tolerated Diet: low salt Wound: keep clean and dry Follow up with: DI ANDRADEBERTRAM MD OSBALDO [Primary Care Provider] - 3-5 Days KOTA PASTOR CNM [Advanced Practice Nurse] - 7 Days (Take medication as prescribed. Low salt diet. Call for appointment in one week for blood pressure check. Follow up with primary care provider. Call with any headache not relieved with Tylenol, blurred vision, chest pain. Call with any concerns.) Prescriptions: Labetalol [Labetalol 200mg TAB] 200 mg PO BID #60 tablet
[2019-01-16] MEDS: NORMODYNE PO SCH (09:00)
[2019-01-16 09:03] VITALS: BP 126/81
== END 2019-01-16 09:15 | disposition home or self-care (01) | DRG 776 ==
LOC: ED 15:28 → LD 19:13 → OB 01-15 19:08
PROVIDERS: ADMIT Obstetrics & Gynecology; ATTEND Obstetrics & Gynecology
DX: O11.5 Pre-existing hypertension with pre-eclampsia, complicating the puerperium (principal); Z98.51 Tubal ligation status; Z79.899 Other long term (current) drug therapy; O99.63 Diseases of the digestive system complicating the puerperium; K21.9 Gastro-esophageal reflux disease without esophagitis
CPT/HCPCS: 36415; 80053; 81001; 83615; 83735; 84550; 85025; 93005; 93010; 96365; 99285; G0378; J3475; J7120

== ENCOUNTER 2019-01-16 19:40 | Inpatient (IN) | payer BC ==
[2019-01-16] MEDS: FEOSOL PO SCH (21:51)
--- NOTE | 2019-01-16 22:41 | History and Physical Report ---
History of Present Illness Date of examination: 01/16/19 Date of admission: 01/16/19 21:00 Chief complaint: CHAPPELL with elevated BP. History of present illness: This is a 39year-old female POD#11 Repeat c/s with (B) salpingectomy for sterilization. Her post op course was unreamarkable, she present to the office for her post op exam on 01/14/2019, she was noted to have elevated BP's and was sent to ED for evaluation. She was admitted for PP Preeclampsia and given MgSO4 prophylaxis for 24hours. BP's improved and she was discharged home this am with labetalol 200mg bid. She has a CHAPPELL this pm and noted her BP to be 180/110 at home. She admitted now for BP control and observation. Still with CHAPPELL. she has not taken any medication for her CHAPPELL. CHAPPELL mostly involves the (L) anterior. Past History : 6 Term Births: 2 Premature Births: 2 Living Children: 3 Para: 4 Spont. Ab: 2 # 1 Delivery date: 09/06/1998 Weeks Gestation: 28 labor: yes Delivery type: Delivery location: igo Sex: Male weight: 2lbs Comments: PTL, brain abnormaility?, demise # 2 Delivery date: 09/27/2012 Weeks Gestation: 36+5 Delivery type: Anesthesia type: epidural Delivery location: [facility] Infant Sex: female weight: 5.94 Comments: pre-eclampsia/eclampsia; HSV infection, prodromal # 3 Delivery date: 08/03/2014 Weeks Gestation: 39 Delivery type: Anesthesia type: epidural Delivery location: [facility] Infant Sex: female weight: 9.13 # 4 Delivery date: 06/2017 Delivery type: MISSED AB # 5 Delivery date: 09/2017 Delivery type: SAB # 6 Delivery Date: 01/07/2019 Gestational Age: 39 weeks Anesthesia: epidural Delivery Type: Weight: 8.81 lbs Gender: male Location: [facility] Complications: Repeat c/s with salpingectomy for sterilization Past Medical History: Reviewed history from 10/01/2008 and no changes required: Negative Past Medical History Past Surgical History: Reviewed history from 08/03/2014 and no changes required: Hysteroscopic polypectomy C-sectionx2 Past Medical History Surgery (Non-barman): Hysteroscopic polypectomy C-sectionx3 (B) salpingectomy for sterilization Social Hx: Patient is single Smoking History: Patient has never smoked. Active Medications (reviewed today): PLUS 27-1 MG ORAL TABLET ( VIT-FE FUMARATE-FA) Labetalol 200mg po bid Current Allergies (reviewed today): No known allergies Past History - Obstetrical History : 6 Medications and Allergies Allergies Allergy/AdvReac Type Severity Reaction Status Date / Time No Known Allergies Allergy Verified 01/14/19 15:43 Home Medications Medication Instructions Recorded Confirmed Last Taken Type Docusate Sodium [Colace] 100 mg PO BID PRN #30 capsule 01/07/19 01/15/19 Unknown Rx Ferrous Sulfate [Feosol 325 MG tab] 325 mg PO BID #90 tablet 01/07/19 01/15/19 Unknown Rx Ibuprofen [Motrin 800 MG tab] 800 mg PO TID PRN #30 tablet 01/07/19 01/15/19 Unknown Rx Lidocain2.5%/Prilocai2.5% [Emla] 5 gm TP ONCE #1 tube 01/07/19 01/15/19 Unknown Rx Vit-Fe Fumar-FA [ 1 tab PO DAILY 01/07/19 01/15/19 01/06/19 History Vitamin] oxyCODONE /ACETAMINOPHEN [Percocet 1 - 2 tab PO Q4HR PRN #20 tablet 01/07/19 01/15/19 01/15/19 Rx 5/325 mg] Labetalol [Labetalol 200mg TAB] 200 mg PO BID #60 tablet 01/16/19 Unknown Rx Active Meds: Active Medications Ferrous Sulfate (Feosol) 325 mg PO BID [facility] Last Admin: 01/16/19 21:51 Dose: 325 mg Documented by: Labetalol HCl (Normodyne) 200 mg PO BID [facility] Review of Systems All systems: negative Neurological: headaches - Vital Signs Vital signs: Vital Signs Temp Pulse Resp BP 98.4 F 77 18 169/84 01/16/19 21:30 01/16/19 21:30 01/16/19 21:30 01/16/19 21:30 Temp Pulse Resp BP Pulse Ox 98.4 F 77 18 169/84 01/16/19 21:30 01/16/19 21:30 01/16/19 21:30 01/16/19 21:30 - Physical Exam Abdomen: Positive: normal appearance, soft. Negative: distention, tenderness, guarding Extremities: Positive: normal. Negative: tenderness, edema Deep Tendon Reflex Grade: Normal +2 Results All other labs normal. Assessment and Plan - Patient Problems (1) Elevated blood pressure reading Current Visit: Yes Status: Acute Plan to address problem: BP still elevated, will give a dose of hydralazine after INT inserted if BP's still 160/100 or greater (2) Headache Current Visit: Yes Status: Acute Qualifiers: Headache type: tension-type Headache chronicity pattern: acute headache Intractability: intractable Qualified Code(s): G44.201 - Tension-type headache, unspecified, intractable Plan to address problem: Will proceed with head CT w/o contrast (3) delivery delivered Onset Date: ~01/07/19 Current Visit: No Status: Acute
[2019-01-16] MEDS ORDERED: PERCOCET 5/325 PO ONE (22:57)
[2019-01-16] MEDS ORDERED: APRESOLINE IV PRN (23:08)
[2019-01-17] MEDS ORDERED: IBUPROFEN PO PRN (00:07)
--- NOTE | 2019-01-17 00:07 | Cat Scan Report ---
CT HEAD WITHOUT CONTRAST INDICATION: Severe headache, . TECHNIQUE: All CT scans at this facility use dose modulation, iterative reconstruction, automated exp osure control, weight based dosing, when appropriate, to reduce radiation dose to as low as reasonabl y achievable. COMPARISON: No relevant prior studies are available for comparison. FINDINGS: Paranasal sinuses are clear. No acute/significant osseous abnormalities. There is no acute intracranial hemorrhage. No extra-axial fluid collections are seen. Ventricles, sul ci, and basilar cisterns are normal. There is no mass effect or midline shift. No large territorial i nfarct is seen. Brain parenchyma is within normal limits. CONCLUSION: No acute intracranial findings. COMMUNICATION: Time of Communication: 11:01 PM Licensed Practitioner Receiving Report: Dr. Mendenhall Signer Name: Cody Dawson MD Signed: 01/17/2019 12:02 AM Workstation Name: [id number]
--- NOTE | 2019-01-17 00:07 | Event Note ---
Date: 01/17/[address] normal still with CHAPPELL, will allow one percocet now then Niko flores an observe closely. Last BP per Gabriella RECYCLING OPERATOR was 155/94.
[2019-01-17 00:09] LABS: Hematocrit 34.8 % (30.3-42.9); Hemoglobin 11.5 gm/dl (10.1-14.3); Mean Corpuscular HGB Conc 33 % (30-34); Mean Corpuscular Volume 89 fl (79-97); Red Blood Count 3.92 M/mm3 (3.65-5.03); Red Cell Distribution Width 13.3 % (13.2-15.2)
[2019-01-17 00:12] LABS: Platelet Count 208 K/mm3 (140-440)
[2019-01-17 00:25] LABS: Alanine Aminotransferase 22 units/L (7-56); BUN/Creatinine Ratio 20; Blood Urea Nitrogen 8 mg/dL (7-17); Calcium 9.5 mg/dL (8.4-10.2); Hemolysis Index 84
[2019-01-17] MEDS: NORMODYNE PO SCH ×3 (09:26→22:40)
[2019-01-17] MEDS: FEOSOL PO SCH ×2 (09:26→21:12)
--- NOTE | 2019-01-17 11:57 | Progress Note ---
Assessment and Plan - Patient Problems (1) Headache Current Visit: Yes Status: Acute Qualifiers: Headache type: tension-type Headache chronicity pattern: acute headache Intractability: intractable Qualified Code(s): G44.201 - Tension-type headache, unspecified, intractable Plan to address problem: now resolved normal CT scan noted (2) Pre-eclampsia, Onset Date: ~01/14/19 Current Visit: No Status: Acute Plan to address problem: bp stable at this time on the meds she was d/c home on yesterday morning con't to monitor closely Subjective - Subjective Date of service: 01/17/19 Principal diagnosis: HD#1 PP pre E; headache Interval history: Pt denies having CHAPPELL at this time. She does state that when she went home she did have a window in which she was alone at home with all of the children and was not able to rest. Stressed importance of having support during the time we are trying to get her bp under control. I advised that we will monitor her bps today and determine if the meds need to be adjusted. She expressed understanding. She denies any incisional pain at this time. Patient reports: appetite normal, voiding normally, pain well controlled, flatus, ambulating normally, no dizzy ambulation, no nauseated Objective - Vital Signs Latest vital signs: Vital Signs Temp Pulse Resp BP BP 01/17/19 09:26 60 133/88 01/17/19 07:05 97.6 F 60 18 133/88 01/17/19 04:30 98.7 F 69 16 125/72 01/17/19 02:10 125/72 01/17/19 00:10 154/90 01/16/19 23:00 166/82 01/16/19 21:30 98.4 F 77 18 169/84 Intake and Output 01/16/19 01/17/19 01/17/19 22:59 06:59 14:59 Intake Total 360 Balance 360 Intake: Oral 360 Other: Total, Intake Amount 360 Voiding Method Toilet Toilet Weight 77.196 kg - Exam Cardiovascular: Present: Normal S1, Normal S2 Lungs: Present: Clear to auscultation, Normal air movement Abdomen: Present: normal appearance, soft. Absent: tenderness Extremities: Present: normal. Absent: tenderness, edema Deep Tendon Reflex Grade: Normal +2 Incision: Present: normal, dry, intact - Labs Labs: Abnormal lab results 01/16/19 Range/Units 23:24 Carbon Dioxide 21 L (22-30) mmol/L Creatinine 0.4 L (0.7-1.2) mg/dL
[2019-01-18] MEDS: FEOSOL PO SCH (09:04)
[2019-01-18] MEDS: NORMODYNE PO SCH (09:04)
--- NOTE | 2019-01-18 12:46 | Discharge Summary ---
Providers - Providers Date of Admission: 01/16/19 21:00 Date of discharge: 01/18/19 Attending physician: KRISTEN CID [facility] Hospital[facility] Reason for admission: other (elevated blood pressures with headache) Hospital course: Pt admitted for obs. Blood pressures were in acceptable range with rest and current bp meds. Pt advised of need for rest and f/u in office with ob as well as pcp for bp check. She expressed understanding. Headache has resolved since admission and she has had to have no meds for the headache. Condition at discharge: Good Disposition: DC-01 TO HOME OR SELFCARE - Discharge Diagnoses (1) Headache Status: Acute Qualifiers: Headache type: tension-type Headache chronicity pattern: acute headache Intractability: intractable Qualified Code(s): G44.201 - Tension-type headache, unspecified, intractable (2) Pre-eclampsia, Status: Acute Comment: RTO office one week for BP check. Pt also instructed to f/u with her PCP Plan - Provider Discharge Summary Additional instructions: [] Smoking cessation referral if applicable(refer to patient education folder for contact #) [] Refer to [facility] Booklet Call your doctor immediately for: * Fever > 100.5 * Heavy vaginal bleeding ( >1 pad per hour) * Severe persistent headache * Shortness of breath * Reddened, hot, painful area to leg or breast * Drainage or odor from incision. * Keep incision clean and dry at all times and follow doctor's instructions regarding bathing/showering make apt in office this week for evaluation and BP check. - Follow up plan Follow up: MARIANNE MCCORMICK MD [Primary Care Provider] - 7 Days
[2019-01-18 13:07] VITALS: BP 125/83
== END 2019-01-18 13:25 | disposition home or self-care (01) | DRG 776 ==
LOC: UNDOADMIN 19:40 → 3A 19:40 → OB 21:00
PROVIDERS: ADMIT Obstetrics & Gynecology; ATTEND Obstetrics & Gynecology
DX: O14.95 Unspecified pre-eclampsia, complicating the puerperium (principal); R03.0 Elevated blood-pressure reading, without diagnosis of hypertension; G44.201 Tension-type headache, unspecified, intractable; O90.89 Other complications of the puerperium, not elsewhere classified; Z90.722 Acquired absence of ovaries, bilateral
CPT/HCPCS: 36415; 70450; 80053; 85027; G0378

== ENCOUNTER 2019-01-19 20:05 | Observation (INO) | payer BC ==
--- NOTE | 2019-01-19 20:18 | Event Note ---
ED Screening Note ED Screening Note: pt had a baby on january 07, 2019 went to her check up on 01/14/19 BP was too high and was admitted, stayed in the hospital three days pt states she has had headaches denies HTN before , states she has only experienced during her states she is on labetalol 200 mg twice a day and hydrochlorothiazide 12.[address] is [address] Mendenhall This initial assessment/diagnostic orders/clinical plan/treatment(s) is/are subject to change based on patients health status, clinical progression and re-assessment by fellow clinical providers in the ED. Further treatment and workup at subsequent clinical providers discretion. Patient/guardian urged not to elope from the ED as their condition may be serious if not clinically assessed and managed. Initial orders include: labs, UA
[2019-01-19 20:51] LABS: Basophils % (Auto) 0.5 % (0.0-1.8); Eosinophils # (Auto) 0.2 K/mm3 (0.0-0.4); Eosinophils % (Auto) 4.6 % (0.0-4.3); Hematocrit 39.8 % (30.3-42.9); Hemoglobin 12.9 gm/dl (10.1-14.3); Lymphocytes # (Auto) 1.7 K/mm3 (1.2-5.4); Mean Corpuscular HGB Conc 32 % (30-34); Mean Corpuscular Volume 88 fl (79-97); Monocytes # (Auto) 0.3 K/mm3 (0.0-0.8); Monocytes % (Auto) 7.2 % (0.0-7.3); Platelet Count 284 K/mm3 (140-440); Red Blood Count 4.54 M/mm3 (3.65-5.03); Red Cell Distribution Width 13.2 % (13.2-15.2)
[2019-01-19 20:55] LABS: Bilirubin,Urine NEG (Negative); Blood,Urine MOD (Negative); Color,Urine Straw (Yellow); Protein,Urine <15 mg/dL mg/dL (Negative); Urobilinogen,Urine < 2.0 mg/dL (<2.0)
--- NOTE | 2019-01-19 21:29 | Emergency Department Report ---
ED General Adult HPI - General Chief complaint: High BP Stated complaint: HBP Time Seen by Provider: 01/19/19 20:14 Source: patient Mode of arrival: Ambulatory Limitations: No Limitations - History of Present Illness Initial comments: 39-year-old female, in 2 weeks , presents to ED with elevated blood pressure and headache. Patient was admitted on 01/14, for preeclampsia. At that time she had blood pressure 156/110, with no history of hypertension and to her . She was admitted at that time and received 24 hours of magnesium sulfate. The patient was discharged on 01/16, with blood pressure 137/87. Patient returned later that day, on 01/16, with limited blood pressure readings at home of 180/110. Patient was readmitted, had negative CT head. Patient was discharged on 01/18 with blood pressure 130/94. Patient is taking labetalol 200 mg twice a day, and states she started HCTZ 12.5 mg today. Patient states tonight she took her blood pressure home and it was 177/99. Reports diffuse headache. Has prescription for Percocet, but did not take anything for her headache. OB: Dr Mendenhall -: days(s) (5) Location: head Improves with: none Worsens with: none Associated Symptoms: headaches. denies: fever/chills, nausea/vomiting - Related Data Home Medications Medication Instructions Recorded Confirmed Last Taken Vit-Fe Fumar-FA [ 1 tab PO DAILY 01/07/19 01/19/19 01/06/19 Vitamin] Previous Rx's Medication Instructions Recorded Last Taken Type Docusate Sodium [Colace] 100 mg PO BID PRN #30 capsule 01/07/19 01/12/19 Rx Ferrous Sulfate [Feosol 325 MG tab] 325 mg PO BID #90 tablet 01/07/19 01/17/19 Rx Ibuprofen [Motrin 800 MG tab] 800 mg PO TID PRN #30 tablet 01/07/19 Unknown Rx Lidocain2.5%/Prilocai2.5% [Emla] 5 gm TP ONCE #1 tube 01/07/19 Unknown Rx oxyCODONE /ACETAMINOPHEN [Percocet 1 - 2 tab PO Q4HR PRN #20 tablet 01/07/19 01/19/19 Rx 5/325 mg] Labetalol [Labetalol 200mg TAB] 200 mg PO BID #60 tablet 01/16/19 01/18/19 Rx Allergies Allergy/AdvReac Type Severity Reaction Status Date / Time No Known Allergies Allergy Verified 01/14/19 15:43 ED Review of Systems ROS: Stated complaint: HBP Other details as noted in HPI Comment: All other systems reviewed and negative Constitutional: denies: chills, fever Respiratory: denies: shortness of breath Cardiovascular: denies: chest pain Gastrointestinal: denies: nausea, vomiting Neurological: headache. denies: weakness, numbness, paresthesias ED Past Medical Hx - Past Medical History Hx Hypertension: Yes (PIH) Hx Heart Attack/AMI: No Hx Congestive Heart Failure: No Hx Diabetes: No Hx Deep Vein Thrombosis: No Hx GERD: Yes Hx Liver Disease: No Hx Renal Disease: No Hx Sickle Cell Disease: No Hx Headaches / Migraines: No Hx Seizures: No Hx Asthma: No Hx COPD: No Hx HIV: No Additional medical history: preeclampsia w 2nd preg - Surgical History Hx Pacemaker: No Hx Internal Defibrillator: No Additional Surgical History: csection x3 - Social History Smoking Status: Never Smoker Substance Use Type: None - Medications Home Medications: Home Medications Medication Instructions Recorded Confirmed Last Taken Type Docusate Sodium [Colace] 100 mg PO BID PRN #30 capsule 01/07/19 01/19/19 01/12/19 Rx Ferrous Sulfate [Feosol 325 MG tab] 325 mg PO BID #90 tablet 01/07/19 01/19/19 01/17/19 Rx Ibuprofen [Motrin 800 MG tab] 800 mg PO TID PRN #30 tablet 01/07/19 01/19/19 Unknown Rx Lidocain2.5%/Prilocai2.5% [Emla] 5 gm TP ONCE #1 tube 01/07/19 01/19/19 Unknown Rx Vit-Fe Fumar-FA [ 1 tab PO DAILY 01/07/19 01/19/19 01/06/19 History Vitamin] oxyCODONE /ACETAMINOPHEN [Percocet 1 - 2 tab PO Q4HR PRN #20 tablet 01/07/19 01/19/19 01/19/19 Rx 5/325 mg] Labetalol [Labetalol 200mg TAB] 200 mg PO BID #60 tablet 01/16/19 01/19/19 01/18/19 Rx ED Physical Exam - General Limitations: No Limitations General appearance: alert, in no apparent distress, other (appears nontoxic) - Head Head exam: Present: atraumatic, normocephalic - Eye Eye exam: Present: normal appearance, PERRL, EOMI - ENT ENT exam: Present: mucous membranes moist - Neck Neck exam: Present: normal inspection, full ROM - Respiratory Respiratory exam: Present: normal lung sounds bilaterally. Absent: respiratory distress - Cardiovascular Cardiovascular Exam: Present: regular rate, normal rhythm - GI/Abdominal GI/Abdominal exam: Present: soft. Absent: distended - Extremities Exam Extremities exam: Present: normal inspection - Neurological Exam Neurological exam: Present: alert, oriented X3, CN II-XII intact. Absent: motor sensory deficit - Psychiatric Psychiatric exam: Present: normal affect, normal mood - Skin Skin exam: Present: warm, dry, intact, normal color ED Course Vital Signs 01/19/19 01/19/19 01/19/19 20:15 21:00 21:04 Temperature 97.9 F Pulse Rate 63 59 L Respiratory 18 Rate Blood Pressure 186/97 171/98 Blood Pressure 171/98 [Left] O2 Sat by Pulse 99 Oximetry 01/19/19 01/19/19 01/19/19 21:15 21:30 22:24 Temperature Pulse Rate 60 59 L Respiratory 16 Rate Blood Pressure 164/99 158/92 Blood Pressure 158/92 145/87 [Left] O2 Sat by Pulse 98 Oximetry 01/19/19 01/19/19 01/19/19 22:31 22:50 23:21 Temperature Pulse Rate 56 L 60 Respiratory 15 16 Rate Blood Pressure Blood Pressure 165/87 145/95 [Left] O2 Sat by Pulse 98 99 Oximetry ED Medical Decision Making - Lab Data Result diagrams: 01/19/19 20:31 01/19/19 20:31 - Medical Decision Making Spoke w/ Dr Goldsmith. Pt will be readmitted. BP is labile. Currently 145/95, will not treat at this time. Dr Goldsmith does not want any magnesium administered here in the ED. - Differential Diagnosis hypertensive urgency, preeclampsia, spinal CHAPPELL Critical care attestation.: If time is entered above; I have spent that time in minutes in the direct care of this critically ill patient, excluding procedure time. ED Disposition Clinical Impression: Hypertensive urgency Disposition: OP ADMIT IP TO THIS HOSP Is pt being admited?: Yes Condition: Stable Time of Disposition: 22:02
[2019-01-19] MEDS ORDERED: PERCOCET 5/325 PO ONE (21:30)
[2019-01-19 21:31] LABS: Alanine Aminotransferase 19 units/L (7-56); BUN/Creatinine Ratio 20; Blood Urea Nitrogen 10 mg/dL (7-17); Calcium 9.9 mg/dL (8.4-10.2); Hemolysis Index 36
[2019-01-19 21:56] LABS: Albumin 4.6 g/dL (3.9-5)
[2019-01-19] MEDS ORDERED: ZOFRAN IV PRN (22:30)
[2019-01-19] MEDS ORDERED: TYLENOL PO PRN (22:30)
[2019-01-19] MEDS ORDERED: MILK OF MAGNESIA PO PRN (22:30)
[2019-01-19] MEDS ORDERED: NORCO 5/325 PO PRN (22:30)
[2019-01-19] MEDS ORDERED: SODIUM CHLORIDE FLUSH SYRINGE 10 ML IV PRN (22:30)
[2019-01-19] MEDS ORDERED: IBUPROFEN PO PRN (22:38)
--- NOTE | 2019-01-19 22:40 | History and Physical Report ---
History of Present Illness Date of examination: 01/19/19 History of present illness: his is a 39year-old female POD#14 Repeat c/s with (B) salpingectomy for sterilization. Her post op course was unreamarkable, she present to the office for her post op exam on 01/14/2019, she was noted to have elevated BP's and was sent to ED for evaluation. She was admitted for PP Preeclampsia and given MgSO4 prophylaxis for 24hours. BP's improved and she was discharged home on 01/16/2019 with labetalol 200mg bid. She has a CHAPPELL and returned to ER later on 01/16/19 pm and noted her BP to be 180/110 at home. She was admitted for BP control and observation. She was discharged on 01/18/2019 normotensive on labetolol 200mg BID after normal head CT. Returned to ER again today with c/o CHAPPELL and elevated BP at home. Patient is taking labetalol 200 mg twice a day, and states she started HCTZ 12.5 mg today. Patient states she has not taking any medicnes for her headache. Past History Past Medical History: No medical history Past Surgical History: (x3), Other (Hysteroscopic) Medications and Allergies Allergies Allergy/AdvReac Type Severity Reaction Status Date / Time No Known Allergies Allergy Verified 01/14/19 15:43 Home Medications Medication Instructions Recorded Confirmed Last Taken Type Docusate Sodium [Colace] 100 mg PO BID PRN #30 capsule 01/07/19 01/19/19 01/12/19 Rx Ferrous Sulfate [Feosol 325 MG tab] 325 mg PO BID #90 tablet 01/07/19 01/19/19 01/17/19 Rx Ibuprofen [Motrin 800 MG tab] 800 mg PO TID PRN #30 tablet 01/07/19 01/19/19 Unknown Rx Lidocain2.5%/Prilocai2.5% [Emla] 5 gm TP ONCE #1 tube 01/07/19 01/19/19 Unknown Rx Vit-Fe Fumar-FA [ 1 tab PO DAILY 01/07/19 01/19/19 01/06/19 History Vitamin] oxyCODONE /ACETAMINOPHEN [Percocet 1 - 2 tab PO Q4HR PRN #20 tablet 01/07/19 01/19/19 01/19/19 Rx 5/325 mg] Labetalol [Labetalol 200mg TAB] 200 mg PO BID #60 tablet 01/16/19 01/19/19 01/18/19 Rx Active Meds: Active Medications Acetaminophen (Tylenol) 650 mg PO Q4H PRN PRN Reason: Pain MILD(1-3)/Fever >100.5/CHAPPELL Acetaminophen/Hydrocodone Bitart ([place] 5/325) 2 each PO Q6H PRN PRN Reason: Pain, Moderate (4-6) Docusate Sodium (Colace) 100 mg PO BID E[facility] Ibuprofen (Ibuprofen) 800 mg PO TID PRN PRN Reason: Pain Labetalol HCl (Normodyne) 300 mg PO BID [facility] Magnesium Hydroxide (Milk Of Magnesia) 30 ml PO Q4H PRN PRN Reason: Constipation Ondansetron HCl (Zofran) 4 mg IV Q8H PRN PRN Reason: Nausea And Vomiting Sodium Chloride (Sodium Chloride Flush Syringe 10 Ml) 10 ml IV BID ELSY Sodium Chloride (Sodium Chloride Flush Syringe 10 Ml) 10 ml IV PRN PRN PRN Reason: LINE FLUSH Exam - Constitutional Vitals: Temp Pulse Resp BP Pulse Ox 97.9 F 59 L 16 145/87 98 01/19/19 20:15 01/19/19 22:24 01/19/19 22:24 01/19/19 22:24 01/19/19 22:24 General appearance: Present: no acute distress - Respiratory Respiratory effort: normal - Cardiovascular Rhythm: regular - Abdominal General gastrointestinal: Present: soft, non-tender, other (Well- healed incision) Female genitourinary: Present: deferred - Rectal Rectal Exam: deferred - Integumentary Integumentary: Present: clear, warm, dry Results - Labs CBC & Chem 7: 01/19/19 20:31 01/19/19 20:31 Labs: Abnormal lab results 01/19/19 01/19/19 Range/Units 20:31 20:31 WBC 4.3 L (4.5-11.0) K/mm3 Lymph % (Auto) 40.0 H (13.4-35.0) % Eos % (Auto) 4.6 H (0.0-4.3) % Creatinine 0.5 L (0.7-1.2) mg/dL Total Protein 8.4 H (6.3-8.2) g/dL Assessment and Plan - Patient Problems (1) Headache Current Visit: No Status: Acute Qualifiers: Headache type: tension-type Headache chronicity pattern: acute headache Intractability: intractable Qualified Code(s): G44.201 - Tension-type headache, unspecified, intractable Plan to address problem: Patient w/o headache at present will consider neurology consult (2) Pre-eclampsia, Onset Date: ~01/14/19 Current Visit: No Status: Acute Plan to address problem: PIH labs WNL will increase labetolol dose and watch BPs
[2019-01-20] MEDS: NORMODYNE PO SCH ×3 (00:07→22:15)
--- NOTE | 2019-01-20 08:23 | Progress Note ---
Assessment and Plan patient resting w/o complaints. reports CHAPPELL has resolved. b/p 115/78 this morning. Advised pt to only take medication rx'd by OBGYN and not to take diuretic rx'd by PCP until further notice. Will continue current management. - Patient Problems (1) Headache Current Visit: No Status: Resolved Qualifiers: Headache type: tension-type Headache chronicity pattern: acute headache Intractability: intractable Qualified Code(s): G44.201 - Tension-type headache, unspecified, intractable Plan to address problem: pt reports CHAPPELL has resolved Pain rated 0/10 (2) Pre-eclampsia, Onset Date: ~01/14/19 Current Visit: No Status: Acute Subjective - Subjective Date of service: 01/20/19 Principal diagnosis: day #15, headache and elevated b/p Patient reports: appetite normal, voiding normally, pain well controlled, ambulating normally, other (CHAPPELL resolved), no dizzy ambulation, no nauseated Objective - Vital Signs Latest vital signs: Vital Signs Temp Pulse Pulse Resp BP BP Pulse Ox 01/20/19 04:42 97.8 F 64 18 115/78 98 01/20/19 00:07 97.8 F 55 L 18 161/97 98 01/20/19 00:05 57 L 18 98 01/19/19 23:21 60 16 145/95 99 01/19/19 22:50 15 98 01/19/19 22:31 56 L 165/87 01/19/19 22:24 59 L 16 145/87 98 01/19/19 21:30 60 158/92 158/92 01/19/19 21:15 164/99 01/19/19 21:04 171/98 01/19/19 21:00 59 L 171/98 01/19/19 20:15 97.9 F 63 18 186/97 99 Intake and Output 01/19/19 01/20/19 01/20/19 23:59 07:59 15:59 Output Total 0 Balance 0 Output: Urine 0 Void 0 Other: Total, Output Amount 0 Voiding Method Toilet # Voids Void 0 Weight 75.75 kg 75.75 kg Patient Weight 01/20/19 23:59 Weight 75.75 kg - Exam Breasts: Present: normal Cardiovascular: Present: Regular rate Lungs: Present: Clear to auscultation, Normal air movement Abdomen: Present: normal appearance, soft Extremities: Present: normal Deep Tendon Reflex Grade: Normal +2 - Labs Labs: Abnormal lab results 01/19/19 01/19/19 Range/Units 20:31 20:31 WBC 4.3 L (4.5-11.0) K/mm3 Lymph % (Auto) 40.0 H (13.4-35.0) % Eos % (Auto) 4.6 H (0.0-4.3) % Creatinine 0.5 L (0.7-1.2) mg/dL Total Protein 8.4 H (6.3-8.2) g/dL
[2019-01-20] MEDS ORDERED: FEOSOL PO SCH (10:00)
[2019-01-20] MEDS ORDERED: SODIUM CHLORIDE FLUSH SYRINGE 10 ML IV SCH (10:00)
[2019-01-20] MEDS ORDERED: FEOSOL PO ONE (10:19)
[2019-01-20] MEDS: COLACE PO SCH ×2 (10:20→22:00)
--- NOTE | 2019-01-20 21:04 | Event Note ---
Date: 01/20/19 No complaints, no CHAPPELL, plan of care explained, questions encouraged and answered. Will continue Labetalol.
--- NOTE | 2019-01-21 08:52 | Progress Note ---
Assessment and Plan Patient resting in bed with eyes closed, arouses easily to voice. Patient reports feeling well, she denies any complaints or concerns. Patient denies any CHAPPELL- reports she has not had one for >24 hrs. She denies any visual disturbances, RUQ pain, epigastric pain, swelling. Assessment is WNL. Vaginal bleeding is scant, incision is healing well, no s/s infection. VSSAF. Pt reports she would like to be discharged this morning. Neuro consult still pending, RN notified- membership secretary called to notify neurology of consult who stated they will see her today. Will f/u pending completion of consult. Continue current POC at this time. Subjective - Subjective Date of service: 01/21/19 Principal diagnosis: day #16, headache and elevated b/p Patient reports: appetite normal, voiding normally, pain well controlled, ambu lating normally Objective - Vital Signs Latest vital signs: Vital Signs Temp Pulse Resp BP Pulse Ox 01/21/19 07:56 98.1 F 57 L 18 99/61 97 01/21/19 05:33 97.7 F 59 L 20 105/61 99 01/21/19 01:12 97.9 F 76 20 114/69 99 01/20/19 22:15 65 114/85 01/20/19 21:17 97.8 F 59 L 20 135/87 99 01/20/19 20:05 18 01/20/19 15:39 98.5 F 56 L 18 128/70 100 01/20/19 11:32 98.1 F 64 18 105/68 99 01/20/19 10:19 110/64 Intake and Output 01/20/19 01/21/19 01/21/19 23:59 07:59 15:59 Intake Total 600 360 Output Total 450 250 Balance 150 110 Intake: Oral 600 360 Output: Urine 450 250 Void 450 250 Other: Total, Intake Amount 240 240 Total, Output Amount 150 250 Voiding Method Toilet # Voids Void 1 - Exam Cardiovascular: Present: Regular rate, Normal S1, Normal S2 Lungs: Present: Clear to auscultation, Normal air movement Abdomen: Present: normal appearance, soft, normal bowel sounds Uterus: Present: normal, firm Extremities: Present: normal Deep Tendon Reflex Grade: Normal +2 Incision: Present: normal, dry, intact
[2019-01-21] MEDS: NORMODYNE PO SCH (09:59)
--- NOTE | 2019-01-21 13:44 | Consultation ---
History of Present Illness Consult date: 01/21/19 Reason for Consult: Headache Chief complaint: Headache, elevated BP History of present illness: Patient is a 39-year-old woman with no significant past medical history. She delivered her third child 2 weeks ago. On January 14, she had gone for a follow-up appointment, when she was noted to have elevated blood pressure. This is found to be due to preeclampsia, the patient was admitted, and given magnesium during that admission she was then discharged home, and later returned to be admitted again for elevated blood pressure on January 16. She was given labetalol during that admission, and CT head was not found to have any significant abnormalities. She then returned to days ago, for recurrence of headaches and elevated blood pressure. She is admitted again, and was given increased dose of labetalol. She notes that her headaches have now improved since yesterday, that her blood pressure has also been under better control during that time. Patient notes that she is experienced headaches with each elevation in blood pressure, and is also had some mild blurriness of vision. She is also had preeclampsia in her previous 2 pregnancies as well. During her previous pregnancies, she notes that headaches have been similar with preeclampsia. She denies having a history of migraines, or having headaches outside of the setting of preeclampsia. She also notes that she is experienced mild paresthesias in 2 fingers on the right hand, which started during . Past History Past Medical History: No medical history, other (Pre-eclampsia in previous pregnancies) Past Surgical History: (x3), Other (Hysteroscopic) Social history: no significant social history Family history: hypertension Medications and Allergies Allergies Allergy/AdvReac Type Severity Reaction Status Date / Time No Known Allergies Allergy Verified 01/14/19 15:43 Home Medications Medication Instructions Recorded Confirmed Last Taken Type Docusate Sodium [Colace] 100 mg PO BID PRN #30 capsule 01/07/19 01/19/19 01/12/19 Rx Ferrous Sulfate [Feosol 325 MG tab] 325 mg PO BID #90 tablet 01/07/19 01/19/19 01/17/19 Rx Ibuprofen [Motrin 800 MG tab] 800 mg PO TID PRN #30 tablet 01/07/19 01/19/19 Unknown Rx Lidocain2.5%/Prilocai2.5% [Emla] 5 gm TP ONCE #1 tube 01/07/19 01/19/19 Unknown Rx Vit-Fe Fumar-FA [ 1 tab PO DAILY 01/07/19 01/19/19 01/06/19 History Vitamin] oxyCODONE /ACETAMINOPHEN [Percocet 1 - 2 tab PO Q4HR PRN #20 tablet 01/07/19 01/19/19 01/19/19 Rx 5/325 mg] Labetalol [Labetalol 200mg TAB] 200 mg PO BID #60 tablet 01/16/19 01/19/19 01/18/19 Rx Active Meds: Active Medications Acetaminophen (Tylenol) 650 mg PO Q4H PRN PRN Reason: Pain MILD(1-3)/Fever >100.5/CHAPPELL Acetaminophen/Hydrocodone Bitart ([place] 5/325) 2 each PO Q6H PRN PRN Reason: Pain, Moderate (4-6) Docusate Sodium (Colace) 100 mg PO BID [facility] Last Admin: 01/20/19 22:00 Dose: Not Given Documented by: Ibuprofen (Ibuprofen) 800 mg PO TID PRN PRN Reason: Pain Labetalol HCl (Normodyne) 300 mg PO BID [facility] Last Admin: 01/21/19 09:59 Dose: 300 mg Documented by: Magnesium Hydroxide (Milk Of Magnesia) 30 ml PO Q4H PRN PRN Reason: Constipation Ondansetron HCl (Zofran) 4 mg IV Q8H PRN PRN Reason: Nausea And Vomiting Sodium Chloride (Sodium Chloride Flush Syringe 10 Ml) 10 ml IV BID [facility] Sodium Chloride (Sodium Chloride Flush Syringe 10 Ml) 10 ml IV PRN PRN PRN Reason: LINE FLUSH Review of Systems All systems: negative Eyes: bilateral: blurred vision Neurological: headaches Physical Examination - Vital Signs Vital Signs: Vital Signs Temp Pulse Resp BP Pulse Ox 97.9 F 63 18 186/97 99 01/19/19 20:15 01/19/19 20:15 01/19/19 20:15 01/19/19 20:15 01/19/19 20:15 - Constitutional General appearance: comfortable - EENT EENT: Present: ATNC, PERRL, mucous membranes moist - Respiratory Respiratory: Present: lungs clear, normal breath sounds - Cardiovascular Cardiovascular: Present: regular rate, normal S1, normal S2 Extremities: Present: no peripheral edema bilatateraly, no clubbing, cyanosis - Gastrointestinal Gastrointestinal: Present: normoactive bowel sounds, soft, non-tender - Integumentary Integumentary: Present: normal - Neurologic Cranial nerve examination: PERRL, EOMI, VFF, V1/V2/V3 grossly intact, face symmetric, tongue midline, intact shoulder shrug Speech examination: intact Sensorimotor examination: intact Detailed motor examination: full strength in all sav Motor examination - right side: 5/5: biceps, triceps, wrist flexion, wrist extension, internetworking technician, hip flexors, knee extensors, dorsiflexion, plantarflexion Motor examination - left side: 5/5: biceps, triceps, wrist flexion, wrist extension, internetworking technician, hip flexors, knee extensors, dorsiflexion, plantarflexion Detailed sensory examination: intact Reflexes: 2+: ankle, bicep, knee, tricep Cerebellar examination: other (B/l intact to FTN and HTS) - Psychiatric Psychiatric: Present: mood/affect appropriate (Tinels test positive on the right wrist) Results - Laboratory Findings CBC and BMP: 01/19/19 20:31 01/19/19 20:31 Abnormal Lab Findings: Abnormal Labs 01/19/19 01/19/19 20:31 20:31 WBC 4.3 L Lymph % (Auto) 40.0 H Eos % (Auto) 4.6 H Creatinine 0.5 L Total Protein 8.4 H Assessment and Plan Patient is a 39-year-old woman with a previous history of preeclampsia during previous pregnancies, who experienced preeclampsia associated with headaches and blurry vision. She had been found to have elevated blood pressure on January 14. According the patient's clinical findings, it is likely that her headaches are due to preeclampsia, as there is a temporal relation of her headaches with elevated blood pressure. Now that her blood pressure has improved, she notes that her headaches have also improved. It is unlikely that the patient has other etiology of headache, as she has not had a history of migraines, or any chronic history of headaches otherwise. Plan: 1. Headache: due to pre-eclampsia. Improved now that BP control has improved. Recommend to continue to monitor BP and treat pre-eclampsia further per obstetics/gynecology team. Discussed anti-hypertensive options with obstetrics team. Ok to use tylenol for CHAPPELL, if ok with primary team. 2. Carpal tunnel syndrom right wrist: positive tinel's sign on right wrist, with complaint of paresthesia in right fingers. Carpal tunnel syndrome likely in setting of recent . Recommended wrist splint if paresthesias worsen or become painful. Can consider outpatient follow up with neurology for carpal tunel syndrome if problem does not resolve in the future. - Plan of care discussed with primary team and patient. - Will sign off. Please call with any questions. Chucky Loredo MD Neurology - Patient Problems (1) Carpal tunnel syndrome of right wrist Current Visit: Yes Status: Acute (2) Headache Current Visit: No Status: Acute (3) Hypertension Current Visit: No Status: Acute
--- NOTE | 2019-01-21 14:08 | Event Note ---
Date: 01/21/19 Dr. Goldsmith spoke to Neurology after consult. Order from Dr. Goldsmith to D/C patient home at this time, will continue 300mg labetalol PO BID. F/u appt scheduled in office for Saturday at 0945. Pt aware of appt, urged to call sooner with any changes in assessment, questions, or concerns.
[2019-01-21 15:49] VITALS: BP 130/80
== END 2019-01-21 16:15 | disposition home or self-care (01) ==
LOC: ED 20:05 → OB 22:31
PROVIDERS: ADMIT Obstetrics & Gynecology; ATTEND Obstetrics & Gynecology
DX: O15.2 Eclampsia complicating the puerperium (principal); O90.89 Other complications of the puerperium, not elsewhere classified; R51 Headache; O99.355 Diseases of the nervous system complicating the puerperium; G56.01 Carpal tunnel syndrome, right upper limb; O16.5 Unspecified maternal hypertension, complicating the puerperium; Z98.890 Other specified postprocedural states
CPT/HCPCS: 36415; 80053; 81001; 85025; 99284; G0378

== ENCOUNTER 2019-01-22 22:20 | Inpatient (IN) | payer BC ==
[2019-01-22 23:45] LABS: Basophils % (Auto) 0.4 % (0.0-1.8); Eosinophils # (Auto) 0.2 K/mm3 (0.0-0.4); Eosinophils % (Auto) 4.4 % (0.0-4.3); Hematocrit 37.2 % (30.3-42.9); Hemoglobin 12.3 gm/dl (10.1-14.3); Lymphocytes # (Auto) 1.6 K/mm3 (1.2-5.4); Lymphocytes % (Auto) 45.3 % (13.4-35.0); Mean Corpuscular HGB Conc 33 % (30-34); Mean Corpuscular Volume 87 fl (79-97); Monocytes # (Auto) 0.3 K/mm3 (0.0-0.8); Monocytes % (Auto) 7.4 % (0.0-7.3); Platelet Count 225 K/mm3 (140-440); Red Blood Count 4.26 M/mm3 (3.65-5.03); Red Cell Distribution Width 13.1 % (13.2-15.2)
[2019-01-22 23:47] LABS: BUN/Creatinine Ratio 18; Blood Urea Nitrogen 9 mg/dL (7-17); Calcium 9.3 mg/dL (8.4-10.2); Hemolysis Index 10
--- NOTE | 2019-01-23 00:06 | Emergency Department Report ---
ED General Adult HPI - General Chief complaint: High BP Stated complaint: HIGH BP Time Seen by Provider: 01/23/19 00:01 Source: patient Mode of arrival: Ambulatory Limitations: No Limitations - History of Present Illness Initial comments: Patient is a 39-year-old female that presents emergency room with complaints of headache and high blood pressure. Patient states she was sent here by her IN CLASSROOM TUTOR's office for evaluation for possible . Left ear. Patient states 2 weeks ago she had a here. Patient states she's had eclampsia in the past. Patient states that her blood pressure was 190/85 at home and she took an extra dose of labetalol. In triage today patient states that her blood pressure is 150/80. Patient states she had leg swelling for approximately 890s after delivering the baby. Patient complains of headache. Patient states the headache is better with rest and worse with exertion. Patient states the headache is a 6 out of 10. Patient states at times she has dizziness and lightheadedness. -: Sudden Location: head Severity scale (0 -10): 4 Quality: aching Consistency: constant Improves with: rest Worsens with: movement Associated Symptoms: headaches. denies: confusion, chest pain, cough, diaphoresis, fever/chills, loss of appetite, malaise, nausea/vomiting, rash, seizure, shortness of breath, syncope, weakness Treatments Prior to Arrival: none - Related Data Home Medications Medication Instructions Recorded Confirmed Last Taken Vit-Fe Fumar-FA [ 1 tab PO DAILY 01/07/19 01/19/19 01/06/19 Vitamin] Previous Rx's Medication Instructions Recorded Last Taken Type Docusate Sodium [Colace] 100 mg PO BID PRN #30 capsule 01/07/19 01/12/19 Rx Ferrous Sulfate [Feosol 325 MG tab] 325 mg PO BID #90 tablet 01/07/19 01/17/19 Rx Ibuprofen [Motrin 800 MG tab] 800 mg PO TID PRN #30 tablet 01/07/19 Unknown Rx Lidocain2.5%/Prilocai2.5% [Emla] 5 gm TP ONCE #1 tube 01/07/19 Unknown Rx oxyCODONE /ACETAMINOPHEN [Percocet 1 - 2 tab PO Q4HR PRN #20 tablet 01/07/19 01/19/19 Rx 5/325 mg] Labetalol [Labetalol 200mg TAB] 200 mg PO BID #60 tablet 01/16/19 01/18/19 Rx Labetalol HCl [Labetalol 300mg TAB] 300 mg PO BID #60 tablet 01/21/19 Unknown Rx Allergies Allergy/AdvReac Type Severity Reaction Status Date / Time No Known Allergies Allergy Verified 01/14/19 15:43 ED Review of Systems ROS: Stated complaint: HIGH BP Other details as noted in HPI Constitutional: denies: chills, fever Eyes: denies: eye pain, eye discharge, vision change ENT: denies: ear pain, throat pain Respiratory: denies: cough, shortness of breath, wheezing Cardiovascular: denies: chest pain, palpitations Endocrine: no symptoms reported Gastrointestinal: denies: abdominal pain, nausea, diarrhea Genitourinary: denies: urgency, dysuria, discharge Musculoskeletal: denies: back pain, joint swelling, arthralgia Skin: denies: rash, lesions Neurological: headache. denies: weakness, paresthesias Psychiatric: denies: anxiety, depression Hematological/Lymphatic: denies: easy bleeding, easy bruising ED Past Medical Hx - Past Medical History Previous Medical History?: Yes Hx Hypertension: Yes (PIH) Hx Heart Attack/AMI: No Hx Congestive Heart Failure: No Hx Diabetes: No Hx Deep Vein Thrombosis: No Hx GERD: Yes Hx Liver Disease: No Hx Renal Disease: No Hx Sickle Cell Disease: No Hx Headaches / Migraines: No Hx Seizures: No Hx Asthma: No Hx COPD: No Hx HIV: No Additional medical history: preeclampsia w 2nd preg - Surgical History Past Surgical History?: Yes Hx Pacemaker: No Hx Internal Defibrillator: No Additional Surgical History: csection x3 - Family History Family history: no significant - Social History Smoking Status: Never Smoker Substance Use Type: None - Medications Home Medications: Home Medications Medication Instructions Recorded Confirmed Last Taken Type Docusate Sodium [Colace] 100 mg PO BID PRN #30 capsule 01/07/19 01/19/19 01/12/19 Rx Ferrous Sulfate [Feosol 325 MG tab] 325 mg PO BID #90 tablet 01/07/19 01/19/19 01/17/19 Rx Ibuprofen [Motrin 800 MG tab] 800 mg PO TID PRN #30 tablet 01/07/19 01/19/19 Unknown Rx Lidocain2.5%/Prilocai2.5% [Emla] 5 gm TP ONCE #1 tube 01/07/19 01/19/19 Unknown Rx Vit-Fe Fumar-FA [ 1 tab PO DAILY 01/07/19 01/19/19 01/06/19 History Vitamin] oxyCODONE /ACETAMINOPHEN [Percocet 1 - 2 tab PO Q4HR PRN #20 tablet 01/07/19 01/19/19 01/19/19 Rx 5/325 mg] Labetalol [Labetalol 200mg TAB] 200 mg PO BID #60 tablet 01/16/19 01/19/19 01/18/19 Rx Labetalol HCl [Labetalol 300mg TAB] 300 mg PO BID #60 tablet 01/21/19 Unknown Rx ED Physical Exam - General Limitations: No Limitations General appearance: alert, in no apparent distress - Head Head exam: Present: atraumatic, normocephalic - Eye Eye exam: Present: normal appearance - ENT ENT exam: Present: mucous membranes moist - Neck Neck exam: Present: normal inspection - Respiratory Respiratory exam: Present: normal lung sounds bilaterally. Absent: respiratory distress - Cardiovascular Cardiovascular Exam: Present: regular rate, normal rhythm. Absent: systolic murmur, diastolic murmur, rubs, gallop - GI/Abdominal GI/Abdominal exam: Present: soft, normal bowel sounds - Extremities Exam Extremities exam: Present: normal inspection - Back Exam Back exam: Present: normal inspection - Neurological Exam Neurological exam: Present: alert, oriented X3 - Psychiatric Psychiatric exam: Present: normal affect, normal mood - Skin Skin exam: Present: warm, dry, intact, normal color. Absent: rash ED Course Vital Signs 01/22/19 01/23/19 22:48 00:34 Temperature 98.4 F Pulse Rate 65 58 L Respiratory 18 18 Rate Blood Pressure 150/87 Blood Pressure 137/87 [Left] O2 Sat by Pulse 100 99 Oximetry - Reevaluation(s) Reevaluation #1: Discussed all results with patient. Patient will be admitted to the hospitalist service. Patient agrees to plan of care. 01/23/19 00:09 - Consultations Consultation #1: Discussed case with Dr. Mendenhall. Dr. Mendenhall states she is going to admit the patient. 01/23/19 00:06 ED Medical Decision Making - Lab Data Result diagrams: 01/22/19 23:05 01/22/19 23:05 - Medical Decision Making Patient is a 39-year-old female that presents emergency room for management of her blood pressure. Patient states she was sent here by her TIMBER HARVESTER OPERATOR for evaluation. Patient's IN CLASSROOM TUTOR was consulted and states she is going to admit her. Patient admitted to the mother-baby service. Patient's other complaints are headache. Labs unremarkable - Differential Diagnosis hypertension. Headache. Preeclampsia and Critical Care Time: Yes Critical care attestation.: If time is entered above; I have spent that time in minutes in the direct care of this critically ill patient, excluding procedure time. Critical Care Time: 45 minutes ED Disposition Clinical Impression: Pre-eclampsia, , Elevated blood pressure reading Hypertension Qualifiers: Hypertension type: essential hypertension Qualified Code(s): I10 - Essential (primary) hypertension Headache Qualifiers: Headache type: unspecified Headache chronicity pattern: acute headache Intractability: not intractable Qualified Code(s): R51 - Headache Disposition: 09 OP ADMIT IP TO THIS HOSP Is pt being admited?: Yes Does the pt Need Aspirin: No Condition: Critical Time of Disposition: 00:09
[2019-01-23] MEDS ORDERED: NORMODYNE PO SCH (00:07)
[2019-01-23] MEDS ORDERED: TYLENOL PO PRN (00:40)
[2019-01-23 00:53] LABS: Alanine Aminotransferase 14 units/L (7-56); Albumin 4.3 g/dL (3.9-5)
--- NOTE | 2019-01-23 00:53 | History and Physical Report ---
History of Present Illness Date of examination: 01/23/19 Date of admission: 01/23/19 00:07 Chief complaint: Elevated BP's and CHAPPELL History of present illness: This is a 39 year-old female POD# 15 RC/S with salpingectomy for sterilization who's admitted for CHAPPELL and elevated BP's noted at home. She''s had multiple admissions since delivery for the same symptoms. States she has a CHAPPELL earlier today that resolved with rest however she checked her BP tonight and her BP was 187/90. She then took her Labetalol. On arrival to ED BP 130-150/70-80 but CHAPPELL has recurred. She thinks this CHAPPELL is d/t conflict's she's having with her over having to be evaluated so frequently for elevated BP's. Will admit now for BP medication adjustment and monitoring. She voiced understanding and agrees with plan of care. Past History : 6 Term Births: 2 Premature Births: 2 Living Children: 3 Para: 3 Spont. Ab: 2 # 1 Delivery date: 09/06/1998 Weeks Gestation: 28 labor: yes Delivery type: Delivery location: [place] Inf[place] Sex: Male weight: 2lbs Comments: PTL, brain abnormaility?, demise # 2 Delivery date: 09/27/2012 Weeks Gestation: 36+5 Delivery type: Anesthesia type: epidural Delivery location: [facility] Infant Sex: female weight: 5.94 Comments: pre-eclampsia/eclampsia; HSV infection, prodromal # 3 Delivery date: 08/03/2014 Weeks Gestation: 39 Delivery type: Anesthesia type: epidural Delivery location: [facility] Infant Sex: female weight: 9.13 # 4 Delivery date: 06/2017 Delivery type: MISSED AB # 5 Delivery date: 09/2017 Delivery type: SAB #6 Delivery Date: 01/07/2019 Gestational Age: 39 weeks Anesthesia: epidural Delivery Type: Weight: 8.81 lbs Gender: male Location: [facility] Complications: Repeat c/s with salpingectomy for sterilization - 1 minute: 8 5 minutes: 9 Past Medical History: Reviewed history from 10/01/2008 and no changes required: Negative Past Medical History Past Surgical History: Reviewed history from 08/03/2014 and no changes required: Hysteroscopic polypectomy C-sectionx2 Past Medical History Surgery (Non-gynaecological oncologist): Hysteroscopic polypectomy C-sectionx2 Social Hx: Patient is single Smoking History: Patient has never smoked. Active Medications (reviewed today): PLUS 27-1 MG ORAL TABLET ( VIT-FE FUMARATE-FA) 1 po PLUS 27-1 MG ORAL TABLET ( VIT-FE FUMARATE-FA) 1 po Current Allergies (reviewed today): No known allergies Past History - Obstetrical History : 6 Medications and Allergies Allergies Allergy/AdvReac Type Severity Reaction Status Date / Time No Known Allergies Allergy Verified 01/14/19 15:43 Home Medications Medication Instructions Recorded Confirmed Last Taken Type Docusate Sodium [Colace] 100 mg PO BID PRN #30 capsule 01/07/19 01/19/19 01/12/19 Rx Ferrous Sulfate [Feosol 325 MG tab] 325 mg PO BID #90 tablet 01/07/19 01/19/19 01/17/19 Rx Ibuprofen [Motrin 800 MG tab] 800 mg PO TID PRN #30 tablet 01/07/19 01/19/19 Unknown Rx Lidocain2.5%/Prilocai2.5% [Emla] 5 gm TP ONCE #1 tube 01/07/19 01/19/19 Unknown Rx Vit-Fe Fumar-FA [ 1 tab PO DAILY 01/07/19 01/19/19 01/06/19 History Vitamin] oxyCODONE /ACETAMINOPHEN [Percocet 1 - 2 tab PO Q4HR PRN #20 tablet 01/07/19 01/19/19 01/19/19 Rx 5/325 mg] Labetalol [Labetalol 200mg TAB] 200 mg PO BID #60 tablet 01/16/19 01/19/19 01/18/19 Rx Labetalol HCl [Labetalol 300mg TAB] 300 mg PO BID #60 tablet 01/21/19 Unknown Rx Active Meds: Active Medications Acetaminophen (Tylenol) 650 mg PO Q6H PRN PRN Reason: For Pain/Fever/Headache Labetalol HCl (Normodyne) 300 mg PO TID ELSY Review of Systems All systems: negative Neurological: headaches - Vital Signs Vital signs: Vital Signs Temp Pulse Resp BP Pulse Ox 98.4 F 65 18 150/87 100 01/22/19 22:48 01/22/19 22:48 01/22/19 22:48 01/22/19 22:48 01/22/19 22:48 Temp Pulse Resp BP Pulse Ox 98.4 F 58 L 18 137/87 99 01/22/19 22:48 01/23/19 00:34 01/23/19 00:34 01/23/19 00:34 01/23/19 00:34 - Physical Exam Lungs: Positive: Clear to auscultation Abdomen: Positive: soft. Negative: distention, tenderness Results Result Diagrams: 01/22/19 23:05 01/22/19 23:05 Abnormal lab results 01/22/19 01/22/19 Range/Units 23:05 23:05 WBC 3.4 L (4.5-11.0) K/mm3 RDW 13.1 L (13.2-15.2) % Lymph % (Auto) 45.3 H (13.4-35.0) % [place] % (Auto) 7.4 H (0.0-7.3) % Eos % (Auto) 4.4 H (0.0-4.3) % Seg Neutrophils # 1.5 L (1.8-7.7) K/mm3 Potassium 3.1 L (3.6-5.0) mmol/L Creatinine 0.5 L (0.7-1.2) mg/dL Glucose 128 H (65-100) mg/dL All other labs normal. Assessment and Plan - Patient Problems (1) Labile blood pressure Current Visit: Yes Status: Acute Plan to address problem: will incrase labetalol to tid (2) Headache Current Visit: No Status: Resolved Qualifiers: Headache type: tension-type Headache chronicity pattern: episodic headache Intractability: not intractable Qualified Code(s): G44.219 - Episodic tension-type headache, not intractable Plan to address problem: situational she declines consultation at this time (3) Hypokalemia Current Visit: Yes Status: Acute Plan to address problem: supplementation now and repeat in am
[2019-01-23] MEDS ORDERED: K-DUR PO ONE (00:56)
[2019-01-23 01:06] LABS: Bilirubin,Direct < 0.2 mg/dL (0-0.2)
--- NOTE | 2019-01-23 08:40 | Progress Note ---
Assessment and Plan patient sitting up eating regular breakfast, reports CHAPPELL has resolved. b/p's 137-150/87. Continue current plan of care. - Patient Problems (1) Headache Current Visit: Yes Status: Resolved Qualifiers: Headache type: unspecified Headache chronicity pattern: acute headache Intractability: not intractable Qualified Code(s): R51 - Headache (2) Pre-eclampsia, Onset Date: ~01/14/19 Current Visit: Yes Status: Acute Subjective - Subjective Date of service: 01/23/19 (corporate security officer note) Principal diagnosis: readmit POD #16; elevated b/p and CHAPPELL Patient reports: appetite normal, voiding normally, pain well controlled, ambulating normally, no dizzy ambulation, no nauseated Objective - Vital Signs Latest vital signs: Vital Signs Temp Pulse Resp BP BP Pulse Ox 01/23/19 04:40 59 L 100 01/23/19 04:20 98.7 F 20 140/87 01/23/19 00:34 58 L 18 137/87 99 01/22/19 22:48 98.4 F 65 18 150/87 100 Intake and Output 01/22/19 01/23/19 01/23/19 23:59 07:59 15:59 Intake Total 20 Balance 20 Intake: IV 20 Right Hand 20 Other: Weight 78.018 kg 78.01 kg Patient Weight 01/23/19 23:59 Weight 78.01 kg - Exam Breasts: Present: normal Cardiovascular: Present: Regular rate Lungs: Present: Clear to auscultation, Normal air movement Abdomen: Present: normal appearance, soft Deep Tendon Reflex Grade: Normal +2 Incision: Present: normal, dry, intact - Labs Labs: Abnormal lab results 01/22/19 01/22/19 Range/Units 23:05 23:05 WBC 3.4 L (4.5-11.0) K/mm3 RDW 13.1 L (13.2-15.2) % Lymph % (Auto) 45.3 H (13.4-35.0) % [place] % (Auto) 7.4 H (0.0-7.3) % Eos % (Auto) 4.4 H (0.0-4.3) % Seg Neutrophils # 1.5 L (1.8-7.7) K/mm3 Potassium 3.1 L (3.6-5.0) mmol/L Creatinine 0.5 L (0.7-1.2) mg/dL Glucose 128 H (65-100) mg/dL
[2019-01-23] MEDS: NORMODYNE PO SCH ×4 (08:50→20:48)
--- NOTE | 2019-01-23 12:29 | Event Note ---
Date: 01/23/19 Agree with MW exam and note. Will monitor on increased dose of labetalol at this time and consider d/c home in the am if remains stable and w/o headaches.
[2019-01-23 13:14] LABS: BUN/Creatinine Ratio 14; Blood Urea Nitrogen 7 mg/dL (7-17); Calcium 9.5 mg/dL (8.4-10.2); Hemolysis Index 6
[2019-01-24] MEDS: NORMODYNE PO SCH ×2 (08:30→13:39)
[2019-01-24 10:45] LABS: Amphetamine Screen,Urine PRESUMPTIVE NEGATIVE; Benzodiazepines Screen,Urine PRESUMPTIVE NEGATIVE; Cannabinoid Screen,Urine PRESUMPTIVE NEGATIVE; Cocaine Screen,Urine PRESUMPTIVE NEGATIVE; Methadone Screen,Urine PRESUMPTIVE NEGATIVE; Opiate Screen,Urine PRESUMPTIVE NEGATIVE
[2019-01-24 12:51] VITALS: BP 126/82
--- NOTE | 2019-01-24 13:17 | Discharge Summary ---
Providers - Providers Date of Admission: 01/23/19 00:07 Date of discharge: 01/24/19 (patient desires discharge today) Attending physician: KRISTEN CID [facility] Reason for admission: CHAPPELL, elevated BP Condition: Good Pertinent studies: labs WNL, UDS neg Hospital course: uneventful Disposition: DC-01 TO HOME OR SELFCARE Core Measure Documentation - Palliative Care Palliative Care/ Comfort Measures: Not Applicable - Core Measures Any of the following diagnoses?: none Exam - Constitutional Vitals: Temp Pulse Resp BP Pulse Ox 98.3 F 58 L 16 126/82 98 01/24/19 12:01 01/24/19 12:01 01/24/19 12:01 01/24/19 12:01 01/24/19 12:01 General appearance: Present: no acute distress, well-nourished - EENT Eyes: Present: PERRL ENT: hearing intact, clear oral mucosa - Neck Neck: Present: supple, normal ROM - Respiratory Respiratory effort: normal Respiratory: bilateral: CTA - Cardiovascular Heart Sounds: Present: S1 & S2. Absent: rub, click - Extremities Extremities: pulses symmetrical, No edema Peripheral Pulses: within normal limits - Abdominal General gastrointestinal: Present: soft, non-tender, non-distended, normal bowel sounds Female genitourinary: Present: normal - Integumentary Integumentary: Present: clear, warm, dry - Musculoskeletal Musculoskeletal: gait normal, strength equal bilaterally - Psychiatric Psychiatric: appropriate mood/affect, intact judgment & insight - Neurologic Neurologic: CNII-XII intact, moves all extremities Plan Activity: no restrictions Diet: regular Follow up with: DI ANDRADEDELPHOS MD OSBALDO [Primary Care Provider] - 3-5 Days APOLONIA PAUL MD [Staff Physician] - 7 Days (Please follow up with Dr. Drew gregorio [facility] in [place] on SaturdayJanuary 26 at 10:45am. Call with any questions or concerns. ) Forms: [facility] Discharge Summary Prescriptions: Labetalol HCl [Labetalol 300mg TAB] 300 mg PO TID #90 tablet
== END 2019-01-24 16:00 | disposition home or self-care (01) | DRG 776 ==
LOC: ED 22:20 → OB 01-23 00:07
PROVIDERS: ADMIT Obstetrics & Gynecology; ATTEND Obstetrics & Gynecology
DX: O14.95 Unspecified pre-eclampsia, complicating the puerperium (principal); O99.355 Diseases of the nervous system complicating the puerperium; O99.63 Diseases of the digestive system complicating the puerperium; G44.219 Episodic tension-type headache, not intractable; E87.6 Hypokalemia; K21.9 Gastro-esophageal reflux disease without esophagitis
CPT/HCPCS: 36415; 80048; 80076; 80307; 85025; G0378

== ENCOUNTER 2019-07-17 08:42 | Outpatient (CLI) | payer BC ==
--- NOTE | 2019-07-17 09:30 | Mammography Report ---
DIGITAL SCREENING MAMMOGRAM WITH CAD, 07/17/2019 INDICATION: Routine screening mammography. TECHNIQUE: Digital bilateral 2D mammography was obtained in the craniocaudal and mediolateral obliq ue projections. This examination was interpreted with the benefit of Computer-Aided Detection analysi s. COMPARISON: None. This is a baseline mammogram. FINDINGS: Breast Density: The breasts are heterogeneously dense, which may obscure small masses. Right outer asymmetries on the CC view require additional imaging. No architectural distortion or telles spicious calcifications of the right breast. No evidence of dominant mass, suspicious calcifications or architectural distortion in the left breast. IMPRESSION: Right asymmetries requiring additional imaging. Recommend recall for right exaggerated CC and spot compression CC views and right breast ultrasound if needed. Follow up recommendation: Special View: Spot Category 0: Incomplete. Needs additional imaging evaluation and/or prior mammograms for comparison. A "normal" or negative report should not discourage follow up or biopsy of a clinically significant f inding. A written summary of these findings will be mailed to the patient. The patient will be entered into a mammography reporting system which will generate a reminder letter for the patient's next appointmen t at the appropriate interval. The [employer] recommends yearly mammograms starting at age 40 and continuing as l di as a woman is in good health. Breast MRI is recommended for women with an approximate 20-25% or greater lifetime risk of breast cancer, including women with a strong family history of breast or ova mike cancer or who have been treated for Hodgkin's disease. Signer Name: Lito Hunt MD Signed: 07/17/2019 9:26 AM Workstation Name: [id number]
== END 2019-07-17 08:43 | disposition home or self-care (01) ==
LOC: MAMMO 08:42
PROVIDERS: ATTEND Obstetrics & Gynecology
DX: Z12.31 Encounter for screening mammogram for malignant neoplasm of breast (principal)
CPT/HCPCS: 77067

== ENCOUNTER 2019-07-27 13:08 | Outpatient (CLI) | payer BC ==
--- NOTE | 2019-07-27 14:07 | Mammography Report ---
DIGITAL DIAGNOSTIC MAMMOGRAM WITH CAD, 07/27/2019 INDICATION: Recalled to evaluate asymmetry. 793.80/R92.8 TECHNIQUE: Digital mammographic imaging was performed. Spot compression views were obtained. This examination was interpreted with the benefit of Computer-aided Detection analysis. COMPARISON: 07/17/2018 FINDINGS: Breast Density: The breasts are heterogeneously dense, which may obscure small masses. Lateral, exaggerated CC and spot compression CC views were performed and are negative. Satisfactory e ffacement of asymmetry. IMPRESSION: No mammographic evidence of malignancy. Follow up recommendation: Routine yearly BI-RADS Category 1: Negative. A "normal" or negative report should not discourage follow up or biopsy of a clinically significant f inding. A written summary of these findings will be mailed to the patient. The patient will be entered into a mammography reporting system which will generate a reminder letter for the patient's next appointmen t at the appropriate interval. According to the [employer], yearly mammograms are recommended starting at age 40 and continuing as long as a woman is in good health. Breast MRI is recommended for women with an roger roximately 20-25% or greater lifetime risk of breast cancer, including women with a strong family his tory of breast or ovarian cancer and women who have been treated for Hodgkin's disease. Signer Name: Lito Hunt MD Signed: 07/27/2019 1:59 PM Workstation Name: [id number]
== END 2019-07-27 13:09 | disposition home or self-care (01) ==
LOC: MAMMO 13:08
PROVIDERS: ATTEND Obstetrics & Gynecology
DX: R92.8 Other abnormal and inconclusive findings on diagnostic imaging of breast (principal)

== ENCOUNTER 2020-08-01 09:27 | Outpatient (CLI) | payer BC ==
--- NOTE | 2020-08-01 11:52 | Mammography Report ---
DIGITAL SCREENING MAMMOGRAM WITH CAD, 08/01/2020 CLINICAL INFORMATION / INDICATION: Routine screening mammography. TECHNIQUE: Digital bilateral 2D mammography was obtained in the craniocaudal and mediolateral obliqu e projections. This examination was interpreted with the benefit of Computer-Aided Detection analysis . COMPARISON: 07/17/2019 FINDINGS: Breast Density: The breasts are heterogeneously dense, which may obscure small masses. No dominant mass, suspicious calcifications, or architectural distortion in either breast. Overall, no interval change. IMPRESSION: No mammographic evidence of malignancy. Follow up recommendation: Routine yearly BI-RADS Category 1: Negative. A "normal" or negative report should not discourage follow up or biopsy of a clinically significant f inding. A written summary of these findings will be mailed to the patient. The patient will be entered into a mammography reporting system which will generate a reminder letter for the patient's next appointmen t at the appropriate interval. The [employer] recommends yearly mammograms starting at age 40 and continuing as l di as a woman is in good health. Breast MRI is recommended for women with an approximate 20-25% or greater lifetime risk of breast cancer, including women with a strong family history of breast or ova mike cancer or who have been treated for Hodgkin's disease. Signer Name: Yahaira Brown MD Signed: 08/01/2020 11:48 AM Workstation Name: [id number]
== END 2020-08-01 09:28 | disposition home or self-care (01) ==
LOC: MAMMO 09:27
PROVIDERS: ATTEND Obstetrics & Gynecology
DX: Z12.31 Encounter for screening mammogram for malignant neoplasm of breast (principal)
CPT/HCPCS: 77067

== ENCOUNTER 2021-03-23 17:23 | Emergency (ER) | payer BC ==
[2021-03-23 17:46] VITALS: BP 157/83
--- NOTE | 2021-03-23 18:22 | XRay Report ---
LEFT FOOT 3 VIEWS 1803 INDICATION: left foot/5th toe pain COMPARISON: None available. FINDINGS: Diffuse distal and middle phalanges are seen of the little toe. There appears to be a commi nuted fracture of these conjoined phalanges without significant angulation or displacement may be sub acute. No other fractures are noted. No dislocations are seen. Signer Name: Jan Kelly MD Signed: 03/23/2021 6:17 PM Workstation Name: [id number]
--- NOTE | 2021-03-23 19:03 | Emergency Department Report ---
ED Lower Extremity HPI - General Chief Complaint: Extremity Injury, Lower Stated Complaint: LT TOE INJURY Time Seen by Provider: 03/23/21 17:46 Source: patient Mode of arrival: Ambulatory Limitations: No Limitations - History of Present Illness Initial Comments: This is a 41-year-old female nontoxic, well nourished in appearance, no acute signs of distress presents to the ED with c/o of left toe pain x1 day. Patient stated that a metal pole fell on her toe. Patient denies any other injuries or trauma. Patient denies any numbness, tingling, fever, chills, nausea, vomiting, chest pain, shortness of breath, headache, stiff neck. Patient denies any joint swelling or joint redness. Patient denies decreased range of motion. Patient stated has decreased gait due to pain. Patient denies any allergies. -: days(s) Injury: Toes: Left Severity: mild Severity scale (0 -10): 8 Improves With: immobilization Worsens With: weight bearing, movement, palpation Associated Symptoms: swelling, able to partially bear weight. denies: snap/pop sensation, numbness, tingling, unable to bear weight - Related Data Home Medications Medication Instructions Recorded Confirmed Last Taken Vit-Fe Fumar-FA [ 1 tab PO DAILY 01/07/19 01/19/19 01/06/19 Vitamin] Previous Rx's Medication Instructions Recorded Last Taken Type Docusate Sodium [Colace] 100 mg PO BID PRN #30 capsule 01/07/19 01/12/19 Rx Ferrous Sulfate [Feosol 325 MG tab] 325 mg PO BID #90 tablet 01/07/19 01/17/19 Rx Ibuprofen [Motrin 800 MG tab] 800 mg PO TID PRN #30 tablet 01/07/19 Unknown Rx Lidocain2.5%/Prilocai2.5% [Emla] 5 gm TP ONCE #1 tube 01/07/19 Unknown Rx oxyCODONE /ACETAMINOPHEN [Percocet 1 - 2 tab PO Q4HR PRN #20 tablet 01/07/19 01/19/19 Rx 5/325 mg] labetaloL [Labetalol 200mg TAB] 200 mg PO BID #60 tablet 01/16/19 01/18/19 Rx Labetalol HCl [Labetalol 300mg TAB] 300 mg PO BID #60 tablet 01/21/19 Unknown Rx Labetalol HCl [Labetalol 300mg TAB] 300 mg PO TID #90 tablet 01/24/19 Unknown Rx Naproxen 500 mg PO Q12H PRN #12 tablet 03/23/21 Unknown Rx Allergies Allergy/AdvReac Type Severity Reaction Status Date / Time No Known Allergies Allergy Verified 03/23/21 17:42 ED Review of Systems ROS: Stated complaint: LT TOE INJURY Other details as noted in HPI Comment: All other systems reviewed and negative Constitutional: denies: chills, fever Eyes: denies: eye pain, eye discharge, vision change ENT: denies: ear pain, throat pain Respiratory: denies: cough, shortness of breath, wheezing Cardiovascular: denies: chest pain, palpitations Endocrine: no symptoms reported Gastrointestinal: denies: abdominal pain, nausea, diarrhea Genitourinary: denies: urgency, dysuria, discharge Musculoskeletal: denies: back pain, joint swelling, arthralgia Skin: denies: rash, lesions Neurological: denies: headache, weakness, paresthesias Psychiatric: denies: anxiety, depression Hematological/Lymphatic: denies: easy bleeding, easy bruising ED Past Medical Hx - Past Medical History Previous Medical History?: Yes Hx Hypertension: Yes (PIH) Hx Heart Attack/AMI: No Hx Congestive Heart Failure: No Hx Diabetes: No Hx Deep Vein Thrombosis: No Hx GERD: Yes Hx Liver Disease: No Hx Renal Disease: No Hx Sickle Cell Disease: No Hx Headaches / Migraines: No Hx Seizures: No Hx Asthma: No Hx COPD: No Hx HIV: No Additional medical history: preeclampsia w 2nd preg - Surgical History Hx Pacemaker: No Hx Internal Defibrillator: No Additional Surgical History: csection x3 - Social History Smoking Status: Never Smoker Substance Use Type: None - Medications Home Medications: Home Medications Medication Instructions Recorded Confirmed Last Taken Type Docusate Sodium [Colace] 100 mg PO BID PRN #30 capsule 01/07/19 01/19/19 01/12/19 Rx Ferrous Sulfate [Feosol 325 MG tab] 325 mg PO BID #90 tablet 01/07/19 01/19/19 01/17/19 Rx Ibuprofen [Motrin 800 MG tab] 800 mg PO TID PRN #30 tablet 01/07/19 01/19/19 Unknown Rx Lidocain2.5%/Prilocai2.5% [Emla] 5 gm TP ONCE #1 tube 01/07/19 01/19/19 Unknown Rx Vit-Fe Fumar-FA [ 1 tab PO DAILY 01/07/19 01/19/19 01/06/19 History Vitamin] oxyCODONE /ACETAMINOPHEN [Percocet 1 - 2 tab PO Q4HR PRN #20 tablet 01/07/19 01/19/19 01/19/19 Rx 5/325 mg] labetaloL [Labetalol 200mg TAB] 200 mg PO BID #60 tablet 01/16/19 01/19/19 01/18/19 Rx Labetalol HCl [Labetalol 300mg TAB] 300 mg PO BID #60 tablet 01/21/19 Unknown Rx Labetalol HCl [Labetalol 300mg TAB] 300 mg PO TID #90 tablet 01/24/19 Unknown Rx Naproxen 500 mg PO Q12H PRN #12 tablet 03/23/21 Unknown Rx ED Physical Exam - General Limitations: No Limitations General appearance: alert, in no apparent distress - Head Head exam: Present: atraumatic, normocephalic - Eye Eye exam: Present: normal appearance - Neck Neck exam: Present: normal inspection, full ROM. Absent: lymphadenopathy - Respiratory Respiratory exam: Absent: respiratory distress - Cardiovascular Cardiovascular Exam: Present: regular rate - Extremities Exam Extremities exam: Present: full ROM, tenderness, normal capillary refill. Absent: pedal edema, joint swelling, calf tenderness - Expanded Lower Extremity Exam Left Hip exam: Present: normal inspection, full ROM. Absent: tenderness, swelling Upper Leg exam: Present: normal inspection, full ROM. Absent: tenderness, swelling Knee exam: Present: normal inspection, full ROM. Absent: tenderness, swelling Lower Leg exam: Present: normal inspection, full ROM. Absent: tenderness, swelling Ankle exam: Present: normal inspection, full ROM. Absent: tenderness, swelling Foot/Toe exam: Present: full ROM, tenderness, swelling, ecchymosis. Absent: abrasion, laceration, deformity, crepidus, dislocation, erythema, amputation, puncture wound, foreign body, calcaneal tenderness, tenderness at base of 5th metatarsal, nail avulsion, subungual hematoma Neuro vascular tendon exam: Present: no vascular compromise Gait: Positive: observed and limited by pain - Back Exam Back exam: Present: normal inspection, full ROM - Neurological Exam Neurological exam: Present: alert, oriented X3 - Psychiatric Psychiatric exam: Present: normal affect, normal mood - Skin Skin exam: Present: warm, dry, intact, normal color. Absent: rash ED Course Vital Signs 03/23/21 17:42 Temperature 98.4 F Pulse Rate 84 Respiratory 18 Rate Blood Pressure 157/83 O2 Sat by Pulse 99 Oximetry - Reevaluation(s) Reevaluation #1: 03/23/21 19:04 Patient is speaking in full sentences with no signs of distress noted. ED Lower Extremity MDM - Radiology Data [facility] [address] [place] [address] XRay Report Signed Patient: LAKESHIA CHRISTIANSEN MR#: [id number] : 1980 Acct:[id number] Age/Sex: 41 / F ADM Date: 03/23/21 Loc: ED Attending Dr: Ordering Physician: JORDAN BRITT NP Date of Service: 03/23/21 Procedure(s): XR foot 3+V LT Accession Number(s): [id number] cc: JORDAN BRITT NP Fluoro Time In Minutes: LEFT FOOT 3 VIEWS 1803 INDICATION: left foot/5th toe pain COMPARISON: None available. FINDINGS: Diffuse distal and middle phalanges are seen of the little toe. There appears to be a comminuted fracture of these conjoined phalanges without significant angulation or displacement may be subacute. No other fractures are noted. No dislocations are seen. Signer Name: Jan Kelly MD Signed: 03/23/2021 6:17 PM Workstation Name: [id number] Transcribed By: Dictated By: Jan Kelly MD Electronically Authenticated By: Jan Kelly MD Signed Date/Time: 03/23/211816 DD/ 14 TD/TT: - Medical Decision Making This is a 41-year-old female that presents with left fifth toe fracture. Patient is stable and was examined by me. I referred patient to an orthopedic doctor for further evaluation for possible MRI. X-ray has been obtained and dictated by the radiologist. Patient is notified of the x-ray report with noted by the patient. Patient does have normal gait with some tenderness and no joint swelling. No ecchymosis. no joint redness or swelling. Not warm to touch. No signs of cellulites present. Patient received chapincito taped to the fourth and fifth left toes and postop surgical shoe. Patient was instructed to RICE therapy. Patient is discharged with naproxen. At time of discharge, the patient does not seem toxic or ill in appearance. No acute signs of distress noted. Patient agrees to discharge treatment plan of care. No further questions noted by the patient. Critical care attestation.: If time is entered above; I have spent that time in minutes in the direct care of this critically ill patient, excluding procedure time. ED Disposition Clinical Impression: Toe fracture, left Qualifiers: Encounter type: initial encounter Toe: lesser toe Fracture type: closed Phalanx: unspecified phalanx Fracture alignment: nondisplaced Qualified Code(s): S92.505A - Nondisplaced unspecified fracture of left lesser toe(s), initial e ncounter for closed fracture Disposition: 01 HOME / SELF CARE / HOMELESS Is pt being admited?: No Does the pt Need Aspirin: No Condition: Stable Instructions: Toe Fracture, [id number], RICE Therapy for Routine Care of Injuries, [id number] Additional Instructions: Follow-up with a orthopedic doctor in 3-5 days or if symptoms worsen and continue return to emergency room as soon as possible. No physical activity that extremity until cleared by orthopedic doctor Prescriptions: Naproxen 500 mg PO Q12H PRN #12 tablet PRN Reason: Pain , Severe (7-10) Referrals: PRIMARY CAREMD [Referring] - 3-5 Days MAXWELL STANLEY MD [Staff Physician] - 3-5 Days Forms: Work/School Release Form(ED) Time of Disposition: 19:11
== END 2021-03-23 19:30 | disposition home or self-care (01) ==
LOC: ED 17:23
DX: S92.505A Nondisplaced unspecified fracture of left lesser toe(s), initial encounter for closed fracture (principal); I10 Essential (primary) hypertension; K21.9 Gastro-esophageal reflux disease without esophagitis; Z98.890 Other specified postprocedural states; X58.XXXA Exposure to other specified factors, initial encounter; Y93.89 Activity, other specified; Y92.89 Other specified places as the place of occurrence of the external cause; Y99.8 Other external cause status
CPT/HCPCS: 99283

== ENCOUNTER 2021-08-04 13:32 | Outpatient (CLI) | payer BC | END 2021-08-04 13:33 | disposition home or self-care (01) | LOC: MAMMO 13:32 | PROVIDERS: ATTEND Obstetrics & Gynecology | DX: Z12.31 Encounter for screening mammogram for malignant neoplasm of breast (principal) | CPT/HCPCS: 77067 ==